=== PATIENT | male | born 1965 | race Two or more races ===

== ENCOUNTER 2016-05-31 16:07 | Inpatient (IN) | payer MEDICAID ==
[~2016-05-31] VITALS: Ht 162.6 cm; Wt 63.5 kg
[~2016-05-31 16:07] MED LIST: ACETAMINOPHEN325 M1 ORAL; AMLODIPINE BESY10 MG ORAL; CEPHALEXIN500 M1 ORAL; FOLIC ACID1 MG ORAL; GLYBURIDE5 MG ORAL; JANUVIA50 MG ORAL; TRAMADOL HCL50 MG ORAL; VANCO 1 GR1 GM/250 M IV; VANCOMYCIN1 GM/2502 IVPB; VITAMIN B-1100 MG ORAL
[2016-05-31 16:45] VITALS: BP 149/96
[2016-05-31 16:51] LABS: MEAN CORPUSCULAR HEMOGLOBIN 32.7 PG (27.0-31.0); MEAN CORPUSCULAR HGB CONC 33.3 G/DL (32.0-36.0); MEAN CORPUSCULAR VOLUME 98 FL (80-99); MEAN PLATELET VOLUME 8.1 FL (6.5-10.1); PLATELET COUNT 76 K/UL (150-450); RED CELL DISTRIBUTION WIDTH 12.8 % (11.6-14.8); WHITE BLOOD COUNT 5.2 K/UL (4.8-10.8)
[2016-05-31 17:03] LABS: ALANINE AMINOTRANSFERASE 24 U/L (3-41); ALBUMIN/GLOBULIN RATIO 0.9 (1.0-2.7); ALCOHOL 275 mg/dL; ANION GAP 15 (5-15); ASPARTATE AMINO TRANSFERASE 38 U/L (5-40); CALCIUM 9.6 mg/dL (8.6-10.2); CARBON DIOXIDE 30 mEQ/L (20-30); CHLORIDE 97 mEQ/L (98-107); CREATININE 0.9 mg/dL (0.7-1.2); GLOMERULAR FILTRATION RATE > 60 mL/min (>60); HEMOLYSIS 5; POTASSIUM 4.7 mEQ/L (3.4-4.9); SODIUM 142 mEQ/L (135-145); TOTAL PROTEIN 9.4 g/dL (6.6-8.7)
[2016-05-31 17:21] LABS: TROPONIN I < 0.30 ng/mL (<=0.30)
[2016-05-31] MEDS ORDERED: NS 1000ml 1,900 ML IVLG ONE (17:30)
[2016-05-31 18:21] LABS: BAND NEUTROPHILS % (MANUAL) 1 % (0-8); BASOPHILS % (MANUAL) 2 % (0-2); EOSINOPHILS % (MANUAL) 4 % (0-3); LYMPHOCYTES % (MANUAL) 52 % (20-45); NEUTROPHILS % (MANUAL) 35 % (45-75); PLATELET ESTIMATE DECREASED; PLATELET MORPHOLOGY NORMAL; TOTAL CELLS COUNTED 100
--- NOTE | 2016-05-31 18:21 | Emergency Room Report ---
History of Present Illness General Chief Complaint: Generalized Weakness Source: Patient Present Illness HPI This patient is brought in by EMS. He has a history of alcoholism. He was brought in because he complains of being shaky and not feeling well. Per report , his daughter told EMS that he has been in alcohol rehabilitation. However, she suspects that he has been drinking. He states that he is shaky and does not feel well. He admits he has been drinking. He has no other complaints. Allergies: Coded Allergies: No Known Allergies (Unverified , 11/18/15) Patient History Past Medical History: see triage record, DM, HTN, seizures Social History: Reports: alcohol use, Denies: drug use, smoking Reviewed Nursing Documentation: PMH: Agreed, PSxH: Agreed Nursing Documentation-PMH Hx Cardiac Problems: Yes Hx Hypertension: Yes Hx Diabetes: Yes Hx Cancer: No Hx Gastrointestinal Problems: No Hx Neurological Problems: Yes - etoh abuse Hx Seizures: Yes Hx Weakness: Yes Review of Systems All Other Systems: negative except mentioned in HPI Physical Exam Vital Signs Date Time Temp Pulse Resp B/P Pulse Ox O2 Delivery O2 Flow Rate FiO2 05/31/16 15:59 97.7 110 16 150/90 97 Room Air Sp02 EP Interpretation: reviewed, normal General Appearance: no apparent distress, alert, GCS 15, non-toxic Head: normocephalic, atraumatic Eyes: bilateral eye PERRL, bilateral eye normal inspection ENT: hearing grossly normal, normal pharynx, no angioedema, normal voice Neck: full range of motion, supple/symm/no masses Respiratory: chest non-tender, lungs clear, normal breath sounds, speaking full sentences Cardiovascular #1: regular rate, rhythm, no edema, tachycardia Gastrointestinal: normal bowel sounds, non tender, soft, non-distended, no guarding, no rebound Rectal: deferred Musculoskeletal: back normal, normal range of motion, non-tender Neurologic: alert, oriented x3, responsive, motor strength/tone normal, sensory intact, speech normal Psychiatric: mood/affect normal Skin: normal color, no rash, warm/dry, well hydrated Medical Decision Making Diagnostic Impression: Primary Impression: Alcohol withdrawal Additional Impression: Diabetes type 2, uncontrolled ER Course This pt has a long hx of alcohol abuse and dependence. He presents feeling poorly, and is "shaky." He has a KEARNEY of 272. He also had BS over 300. Likely this is secondary to ETOH abuse and medication non-complaince. He is admitted for further evaluation and treatment of his uncontrolled DM. See EMR EKG Diagnostic Results Rate: tachycardiac Rhythm: other ST Segments: no acute changes Other Impression S.tachycardia Rhythm Strip Diag. Results EP Interpretation: yes Rate: 110's Rhythm: no PVC's, no ectopy Other Impression S.tachycardia Chest X-Ray Diagnostic Results EP Interpretation: Yes Findings: no consolidation, no effusion, no pneumothorax, no acute cardiopulmonary disease Number of Views: 1 Last Vital Signs Date Time Temp Pulse Resp B/P Pulse Ox O2 Delivery O2 Flow Rate FiO2 05/31/16 16:45 97.3 110 13 149/96 100 Room Air Disposition: ADMITTED INPATIENT Condition: Serious Referrals: NOT CHOSEN CLAUDY/,REFERRING (PCP) EUSEBIO TAYLOR D.O. May 31, 2016 18:21
[2016-05-31 18:37] LABS: APPEARANCE,URINE CLEAR; KETONES,URINE NEGATIVE (NEGATIVE); LEUKOCYTE ESTERASE ,URINE NEGATIVE (NEGATIVE); NITRITE,URINE NEGATIVE (NEGATIVE); PH,URINE 6 (4.5-8.0); PROTEIN,URINE 2+ (NEGATIVE); UROBILINOGEN,URINE NORMAL MG/DL (0.0-1.0)
[2016-05-31 18:45] LABS: AMORPHOUS SEDIMENT,UR FEW /LPF; BACTERIA,URINE FEW /HPF; WBC,URINE 0-2 /HPF (0 - 0)
[2016-05-31 19:01] VITALS: BP 155/96
[2016-05-31] MEDS ORDERED: NovoLOG Insulin Flexpen SUBQ SCH (21:00)
[2016-05-31] MEDS ORDERED: LORazepam Inj 2mg/ml 1ml IM PRN (21:00)
[2016-05-31 21:50] LABS: HEMOLYSIS 12; IRON 132 ug/dL (59-158); TOTAL IRON BINDING CAPACITY 364 ug/dL (250-400)
[2016-05-31] MEDS: NovoLOG Insulin Flexpen SUBQ SCH (22:30)
[2016-06-01 00:08] VITALS: BP 122/56
[2016-06-01] MEDS: Acetaminophen 500mg (ES) tab ORAL PRN ×3 (01:33→21:10)
[2016-06-01 04:06] VITALS: BP 141/83
--- NOTE | 2016-06-01 04:37 | History and Physical Report ---
DATE OF ADMISSION: 05/31/2016 HISTORY OF PRESENT ILLNESS: The patient is a 51-year-old male with a history of alcohol dependence. He has been [facility] He presented to the emergency room with chief complaint of being shaky and not feeling well. The patient also has a history of diabetes mellitus, weakness, cytopenia, alcoholic cirrhosis, and seizure disorder. During the evaluation, he presented with tachycardia, anxiety, agitation, psychomotor agitation, and poor historian. Also according to the ER, the patient has been relapsed and drinking alcohol. He also presented with depressed mood and constricted affect. Denies suicidal or homicidal ideations. No delusions. No auditory or visual hallucinations. No manic symptoms. Past psychiatric history of depression. He is currently not taking any psychotropic medication. Denied any psychiatric history. PAST MEDICAL HISTORY: Significant for hypertension, seizure disorder, and diabetes mellitus. ALLERGIES: No known drug allergies. SUBSTANCE ABUSE HISTORY: Significant for alcohol abuse. No illicit drug use or smoking. MENTAL STATUS EXAMINATION: The patient is alert and oriented to time. The mood is dysphoric and anxious. Affect is constricted. Congruent mood. Thought process is concrete. Thought content, no suicidal or homicidal ideation. Insight and judgment impaired. ASSESSMENT: AXIS I: Alcohol dependence and alcohol withdrawal. AXIS II: Deferred. AXIS III: See above. AXIS IV: 20. PLAN: 1. The patient will be started on Valium 10 mg every 3 hours as needed for anxiety and agitation and alcohol withdrawal. 2. May benefit from fluoxetine 20 mg in the morning. This is the most appropriate medication with the patient alcoholism and depression. 3. We will continue follow and readjust the medications. Radha Brunson M.D. DR: BETO JOB#: [id number] CC:
--- NOTE | 2016-06-01 04:47 | Consultation ---
DATE OF CONSULTATION: 05/31/2016 HEMATOLOGY/ONCOLOGY CONSULTATION CONSULTING PHYSICIAN: Tyree Swift M.D. REQUESTING PHYSICIAN: Giuseppe Anderson M.D. REASON FOR CONSULTATION: Evaluation of thrombocytopenia. IDENTIFYING DATA: Dear Dr. Justin Chin, The patient is a pleasant 51-year-old male with past medical history significant for alcoholism, history of cirrhosis, history of hepatosplenomegaly, at this time presents to [facility] for complaints of . No complaints of being tired, fatigue, generalized weakness per report from daughter, the patient has been recently in alcohol rehabilitation. The patient per daughter says that she suspects he has been drinking. upon presentation to the ER WBC 5.2, hemoglobin 13.4, hematocrit 40, and platelet count 76,000. Platelet count within normal limits at his baseline. He did not have history of hepatitis or HIV, however, does have history of hepatosplenomegaly. BUN of 9 and creatinine 0.9. Hematology service was consulted. PAST MEDICAL HISTORY: Hypertension, CHF, . PAST SURGICAL HISTORY: None noted. MEDICATIONS: folic acid, glyburide, Januvia, and thiamine. ALLERGIES: No known drug allergies. FAMILY HISTORY: Noncontributory. REVIEW OF SYSTEMS: Constitutional: No fever. No chills. However, does have some night sweats and shakiness. HEENT: No headache, hearing, or vision changes. Breasts: No lumps, pain, or discharge. Pulmonary: No cough, sputum, or shortness of breath. Cardiovascular: No chest pain, tightness, or palpitations. Gastrointestinal: No nausea, vomiting, or diarrhea. Genitourinary: No dysuria, frequency, or urgency. Musculoskeletal: No joint swelling, muscle pain, or trauma. Neurologic: No dizziness, fainting, or seizures. PHYSICAL EXAMINATION: GENERAL: He is in no distress. VITAL SIGNS: temperature 97.2 degrees Fahrenheit, pulse 111, respiratory rate 13, blood pressure 155/96, and pulse oximetry 100% on room air. PULMONARY: Decreased breath sounds. CARDIOVASCULAR: Regular rate. No S3 or S4. ABDOMEN: Soft, nontender, and nondistended. EXTREMITIES: A 1+ edema. LABORATORY DATA: Platelet count 76,000, WBC 5.2, hemoglobin 13.4, and hematocrit 40. BUN 9 and creatinine 0.9. Alkaline phosphatase 184. ASSESSMENT: 1. Thrombocytopenia likely secondary to underlying hepatosplenomegaly and cirrhosis. 2. Human immunodeficiency virus in the past. No evidence of other etiology besides potential infection. 3. Anemia secondary to chronic disease. In the past, it was in between 9 and 10, currently 13. 4. Decreased hemoglobin and hematocrit, rule out gastrointestinal bleed. 5. Alcoholism history. 6. Alcohol-induced liver cirrhosis. 7. Hypertension. 8. Seizure disorder. RECOMMENDATIONS: 1. Obtain iron panel and ferritin. 2. Peripheral smear ordered as well as HIV, which cannot see the result of the new system. 3. Hepatitis panel reviewed from before. No need to reorder. 4. Medications reviewed. 5. Alcohol cessation entertained. 6. Recommended alcohol . 7. Discuss this with the patient. 8. Continue outpatient alcohol detoxification treatment. 9. Appreciate family input. 10. Follow up on recommendations from other services. 11. Discuss with staff. 12. Transfuse if platelet count less than 20,000. Thank you, Dr. Justin Chin for this consult. Please do not hesitate to contact me with any further questions. Tyree Swift M.D. DR: Farhan JOB#: [id number] CC:
[2016-06-01] MEDS: NovoLOG Insulin Flexpen SUBQ SCH ×4 (06:21→21:08)
[2016-06-01 08:00] VITALS: BP 132/87
--- NOTE | 2016-06-01 08:47 | Cardiac Electrophysiology PN ---
Subjective Subjective [id number] Objective Last 24 Hour Vital Signs Date Time Temp Pulse Resp B/P Pulse Ox O2 Delivery O2 Flow Rate FiO2 06/01/16 08:00 98.2 101 18 132/87 97 Room Air 06/01/16 04:24 99 06/01/16 04:06 98.7 97 20 141/83 98 Room Air 06/01/16 00:24 103 06/01/16 00:08 97.9 109 21 122/56 95 Room Air 05/31/16 19:40 97.3 111 13 155/96 100 Room Air 05/31/16 19:01 111 13 155/96 100 Room Air 05/31/16 16:45 97.3 110 13 149/96 100 Room Air 05/31/16 15:59 97.7 110 16 150/90 97 Room Air Intake and Output 05/31/16 06/01/16 19:00 07:00 Intake Total 100 ml Output Total 500 ml Balance 100 ml -500 ml Intake Oral 100 ml Output Urine Total 500 ml Laboratory Tests Test 05/31/16 16:40 05/31/16 18:00 White Blood Count 5.2 K/UL (4.8-10.8) Red Blood Count 4.10 M/UL (4.70-6.10) L Hemoglobin 13.4 G/DL (14.2-18.0) L Hematocrit 40.3 % (42.0-52.0) L Mean Corpuscular Volume 98 FL (80-99) Mean Corpuscular Hemoglobin 32.7 PG (27.0-31.0) H Mean Corpuscular Hemoglobin Concent 33.3 G/DL (32.0-36.0) Red Cell Distribution Width 12.8 % (11.6-14.8) Platelet Count 76 K/UL (150-450) L Mean Platelet Volume 8.1 FL (6.5-10.1) Neutrophils (%) (Auto) % (45.0-75.0) Lymphocytes (%) (Auto) % (20.0-45.0) Monocytes (%) (Auto) % (1.0-10.0) Eosinophils (%) (Auto) % (0.0-3.0) Basophils (%) (Auto) % (0.0-2.0) Differential Total Cells Counted 100 Neutrophils % (Manual) 35 % (45-75) L Lymphocytes % (Manual) 52 % (20-45) H Monocytes % (Manual) 6 % (1-10) Eosinophils % (Manual) 4 % (0-3) H Basophils % (Manual) 2 % (0-2) Band Neutrophils 1 % (0-8) Platelet Estimate Decreased L Platelet Morphology Normal Red Blood Cell Morphology Normal Sodium Level 142 mEQ/L (135-145) Potassium Level 4.7 mEQ/L (3.4-4.9) Chloride Level 97 mEQ/L (98-107) L Carbon Dioxide Level 30 mEQ/L (20-30) Anion Gap 15 (5-15) Blood Urea Nitrogen 9 mg/dL (7-23) Creatinine 0.9 mg/dL (0.7-1.2) Estimat Glomerular Filtration Rate > 60 mL/min (>60) Glucose Level 387 mg/dL (74-106) H Calcium Level 9.6 mg/dL (8.6-10.2) Iron Level 132 ug/dL (59-158) Total Iron Binding Capacity 364 ug/dL (250-400) Percent Iron Saturation 36 % (15-50) Unsaturated Iron Binding 232 ug/dL (112-346) Ferritin Pending Total Bilirubin 0.5 mg/dL (0.0-1.2) Aspartate Amino Transf (AST/SGOT) 38 U/L (5-40) Alanine Aminotransferase (ALT/SGPT) 24 U/L (3-41) Alkaline Phosphatase 184 U/L (40-129) H Troponin I < 0.30 ng/mL (<=0.30) Total Protein 9.4 g/dL (6.6-8.7) H Albumin 4.5 g/dL (3.5-5.2) Globulin 4.9 g/dL Albumin/Globulin Ratio 0.9 (1.0-2.7) L Serum Alcohol 275 mg/dL HIV (1&2) Antibody Rapid Negative (NEGATIVE) Urine Color Pale yellow Urine Appearance Clear Urine pH 6 (4.5-8.0) Urine Specific [place] 1.015 (1.005-1.035) Urine Protein 2+ (NEGATIVE) H Urine Glucose (UA) 4+ (NEGATIVE) H Urine Ketones Negative (NEGATIVE) Urine Occult Blood 1+ (NEGATIVE) H Urine Nitrite Negative (NEGATIVE) Urine Bilirubin Negative (NEGATIVE) Urine Urobilinogen Normal MG/DL (0.0-1.0) Urine Leukocyte Esterase Negative (NEGATIVE) Urine RBC 2-4 /HPF (0 - 0) H Urine WBC 0-2 /HPF (0 - 0) Urine Squamous Epithelial Cells None /LPF (NONE/OCC) Urine Amorphous Sediment Few /LPF (NONE) H Urine Bacteria Few /HPF (NONE) Urine Opiates Screen Negative (NEGATIVE) Urine Barbiturates Screen Negative (NEGATIVE) Phencyclidine (PCP) Screen Negative (NEGATIVE) Urine Amphetamines Screen Negative (NEGATIVE) Urine Benzodiazepines Screen Negative (NEGATIVE) Urine Cocaine Screen Negative (NEGATIVE) Urine Marijuana (THC) Screen Negative (NEGATIVE) Microbiology Date/Time Source Procedure Growth Status 05/31/16 16:40 Nasal Nares Influenza Types A,B Antigen (DHEERAJ) - Final Complete SIVA TOWNSEND Jun 01, 2016 08:47
[2016-06-01] MEDS: Thiamine 100mg tab ORAL SCH (08:55)
--- NOTE | 2016-06-01 09:40 | Consultation ---
Consult Note Consult Note asked to eval for proteinuria Chief Complaint: Generalized Weakness This patient is brought in by EMS. He has a history of alcoholism. He was brought in because he complains of being shaky and not feeling well. Per report , his daughter told EMS that he has been in alcohol rehabilitation. However, she suspects that he has been drinking. He states that he is shaky and does not feel well. He admits he has been drinking. He has no other complaints. Patient History Past Medical History: see triage record, DM, HTN, seizures Social History: Reports: alcohol use, Denies: drug use, smoking Hx Cardiac Problems: Yes Hx Hypertension: Yes Hx Diabetes: Yes Hx Cancer: No Hx Gastrointestinal Problems: No Hx Neurological Problems: Yes - etoh abuse Hx Seizures: Yes Hx Weakness: Yes Assessment/Plan status: Proteinuria , likely related to DM or h/o HIV. At this time BUN and Cr are WNL. other conditions: 1. Thrombocytopenia likely secondary to underlying hepatosplenomegaly and cirrhosis. 2. h/o Human immunodeficiency virus in the past. currently HIV negative ! 3. Anemia secondary to chronic disease. 4. Alcoholism history. 5. Alcohol-induced liver cirrhosis. 6. Hypertension. 7. Seizure disorder. 8. DM, Hyperglycemia on presentation Plan: Optimize blood sugar- monitor renal parameters and lytes- watch for alcohol withdraw per orders- EULALIA ENAMORADO Jun 01, 2016 09:40
--- NOTE | 2016-06-01 09:48 | Consultation ---
DATE OF CONSULTATION: 06/01/2016 ENDOCRINOLOGY CONSULTATION: REFERRING PHYSICIAN: Giuseppe Anderson M.D. REASON FOR CONSULTATION: Diabetes management. HISTORY OF PRESENT ILLNESS: This is a 51-year-old male with past medical history of alcoholism, cirrhosis, and hepatomegaly, presented to [facility] with generalized weakness. The patient's glucose was elevated. Endocrinology was consulted in order to assist in the management of hyperglycemia. The patient has had tachycardia, anxiety, and agitation. He is a poor historian. PAST MEDICAL HISTORY: Hypertension, seizure disorder, diabetes, alcoholism, and liver disease. MEDICATIONS: Medication as an outpatient, glyburide 2.5 mg b.i.d. and Januvia 50 mg daily. ALLERGIES TO MEDICATION: None. SOCIAL HISTORY: Alcohol abuse. No smoking. No drug use. FAMILY HISTORY: Noncontributory. REVIEW OF SYSTEMS: Difficult to obtain. PHYSICAL EXAMINATION: GENERAL: The patient is drowsy, not in distress. VITAL SIGNS: Blood pressure is 141/83, pulse of 87, temperature 98.2 degrees, and respiratory rate of 18. HEENT: Pupils are equal and reactive to light and accommodation. Sclerae are anicteric. NECK: No JVD. HEART: Regular rate and rhythm. ABDOMEN: Positive bowel sounds. EXTREMITIES: No clubbing, cyanosis, or edema. LABORATORY VALUES: Sodium 142, potassium 4.7, chloride 97, bicarbonate 30, BUN 9, creatinine 0.9, and glucose of 397. WBC 5.2, hemoglobin 13, hematocrit 40, and platelets of 176,000. DIAGNOSES: 1. Diabetes out of control. 2. Alcoholism. 3. Liver disease. PLAN: 1. Liver function tests are stable. 2. I will start the patient on metformin. 3. Januvia 100 mg daily. 4. Sliding scale insulin. 5. Further adjustment according to blood glucose values. Thank you, Dr. Anderson, for request of this consultation. Arturo Graff M.D. DR: Akin JOB#: [id number] CC: PAUL
--- NOTE | 2016-06-01 11:38 | Diagnostic Imaging Report ---
Indication: Chest Pain Comparison: 11/27/15 A single view chest radiograph was obtained. Findings: Cardiomediastinal appearance is within normal limits for age. Pulmonary vascularity is appropriate. The diaphragmatic contour is smooth and costophrenic angles are sharp. No pleural effusions are identified. The bones are unremarkable. Impression: No acute findings
[2016-06-01 12:08] VITALS: BP 135/98
[2016-06-01] MEDS: metFORMIN 500mg tab ORAL SCH ×2 (12:45→16:23)
--- NOTE | 2016-06-01 13:18 | Consultation ---
DATE OF CONSULTATION: CARDIOLOGY CONSULTATION: CONSULTING PHYSICIAN: Darwin Arreguin M.D. REFERRING PHYSICIAN: Giuseppe Anderson M.D. REASON FOR CONSULTATION: Tachycardia and irregular heartbeat. HISTORY OF PRESENT ILLNESS: The patient is a 51-year-old, gentleman with a history of alcoholic cirrhosis, hepatosplenomegaly, hypertension as well as diabetes who was brought to [facility] in the form of being shaky and not feeling well. The patient apparently has been in alcohol rehabilitation, suspect that he has been drinking. The patient had EKG with the computer is actually junctional rhythm even though it is very irregular and it is possible it could be atrial fibrillation in the event that there is significant baseline artifact. The patient however denies any chest pain. At the time of my evaluation, the patient denies chest pain, palpitations, or shortness of breath. PAST MEDICAL HISTORY: 1. Hypertension. 2. Diabetes. 3. History of seizures. PAST SURGICAL HISTORY: Includes surgery on his left toe at [facility] recently. FAMILY HISTORY: Noncontributory. SOCIAL HISTORY: He has been eating and drinking alcohol heavily. REVIEW OF SYSTEMS: Review of systems was performed and was negative other than what was mentioned in the history of present illness. PHYSICAL EXAMINATION: VITAL SIGNS: Blood pressure is 132/87, pulse is 101, respirations 18, and temperature 98.2. HEAD AND NECK: Shows no JVD. LUNGS: Clear. CARDIOVASCULAR: Shows regular S1 and S2 with no gallop or murmur. ABDOMEN: Soft. EXTREMITIES: Nonpitting edema status post surgery in his left big toe. LABORATORY DATA: White count 5.2, hemoglobin 13.4, hematocrit of 40, and platelets 76,000. Sodium is 142, potassium 4.7, BUN of 9, hematocrit of 29, and glucose of 387. Troponin is negative. Glucose 387. ASSESSMENT AND PLAN: 1. Atrial fibrillation with rapid ventricular response, however EKG is very artifactual. Currently, the patient has remained in sinus rhythm. We will repeat the EKG. I will get an echocardiogram to make sure the patient does not have cardiomyopathy heavy alcohol use. In the meantime, I will hold off any cardiac active medication until we get further information. 2. Alcohol abuse on thiamine and folate. Watch for withdrawal. 3. Severe thrombocytopenia. The patient was evaluated by Dr. Granados likely due to underlying hepatosplenomegaly and cirrhosis. 4. Questionable human immunodeficiency virus in the past. 5. Seizure disorder. Thank very much, Dr. Anderson, for allowing me to participate in the care of this patient. Please do not hesitate to contact me if you have any questions regarding my evaluation. Darwin Arreguin M.D. DR: CAMDEN JOB#: [id number] CC:
--- NOTE | 2016-06-01 15:41 | General Progress Note ---
Assessment/Plan Assessment/Plan ASSESSMENT: 1. Thrombocytopenia likely secondary to underlying hepatosplenomegaly and cirrhosis. 2. Anemia secondary to chronic disease. In the past, it was in between 9-10, currently 13. 3. Decreased hemoglobin and hematocrit, rule out GI bleed. 4. Alcoholism history. 5. Alcohol-induced liver cirrhosis. 6. Hypertension. 7. Seizure disorder. 8. Atrial fibrillation RECOMMENDATIONS: 1. Obtain ferritin----> iron panel shows mixed picture, elevated tibc 2. Peripheral smear has been ordered 3. Hepatitis panel reviewed from before. 4. Medications reviewed. 5. Alcohol cessation has been recommended 6. Followup cards, endo, renal recs 7. Discuss this with the patient. 8. Continue outpatient alcohol detoxification treatment. 9. Appreciate family input. 10. Transfuse if platelet count less than 20,000. 11. Discuss with staff. Thank you, Tyree Swift MD Subjective Constitutional: Reports: no symptoms HEENT: Reports: no symptoms Cardiovascular: Reports: no symptoms Respiratory: Reports: no symptoms Gastrointestinal/Abdominal: Reports: poor appetite Genitourinary: Reports: no symptoms Neurologic/Psychiatric: Reports: no symptoms Endocrine: Reports: no symptoms Hematologic/Lymphatic: Reports: anemia Allergies: Coded Allergies: No Known Allergies (Unverified , 11/18/15) Subjective no events overnight, no bleeding Objective Last 24 Hour Vital Signs Date Time Temp Pulse Resp B/P Pulse Ox O2 Delivery O2 Flow Rate FiO2 06/01/16 12:08 97.9 101 18 135/98 98 Room Air 06/01/16 08:08 98 06/01/16 08:00 98.2 101 18 132/87 97 Room Air 06/01/16 04:24 99 06/01/16 04:06 98.7 97 20 141/83 98 Room Air 06/01/16 00:24 103 06/01/16 00:08 97.9 109 21 122/56 95 Room Air 05/31/16 19:40 97.3 111 13 155/96 100 Room Air 05/31/16 19:01 111 13 155/96 100 Room Air 05/31/16 16:45 97.3 110 13 149/96 100 Room Air 05/31/16 15:59 97.7 110 16 150/90 97 Room Air Intake and Output 05/31/16 06/01/16 19:00 07:00 Intake Total 100 ml Output Total 500 ml Balance 100 ml -500 ml Intake Oral 100 ml Output Urine Total 500 ml Laboratory Tests 05/31/16 16:40: White Blood Count 5.2, Red Blood Count 4.10L, Hemoglobin 13.4L, Hematocrit 40.3L , Mean Corpuscular Volume 98, Mean Corpuscular Hemoglobin 32.7H, Mean Corpuscular Hemoglobin Concent 33.3, Red Cell Distribution Width 12.8, Platelet Count 76L, Mean Platelet Volume 8.1, Neutrophils (%) (Auto) , Lymphocytes (%) ( Auto) , Monocytes (%) (Auto) , Eosinophils (%) (Auto) , Basophils (%) (Auto) , Differential Total Cells Counted 100, Neutrophils % (Manual) 35L, Lymphocytes % (Manual) 52H, Monocytes % (Manual) 6, Eosinophils % (Manual) 4H, Basophils % ( Manual) 2, Band Neutrophils 1, Platelet Estimate DecreasedL, Platelet Morphology Normal, Red Blood Cell Morphology Normal, Sodium Level 142, Potassium Level 4.7, Chloride Level 97L, Carbon Dioxide Level 30, Anion Gap 15, Blood Urea Nitrogen 9, Creatinine 0.9, Estimat Glomerular Filtration Rate > 60, Glucose Level 387H, Calcium Level 9.6, Iron Level 132, Total Iron Binding Capacity 364, Percent Iron Saturation 36, Unsaturated Iron Binding 232, Ferritin [Pending], Total Bilirubin 0.5, Aspartate Amino Transf (AST/SGOT) 38, Alanine Aminotransferase (ALT/SGPT) 24, Alkaline Phosphatase 184H, Troponin I < 0.30, Total Protein 9.4H, Albumin 4.5, Globulin 4.9, Albumin/Globulin Ratio 0.9L , Serum Alcohol 275, HIV (1&2) Antibody Rapid Negative 05/31/16 18:00: Urine Color Pale yellow, Urine Appearance Clear, Urine pH 6, Urine Specific [place] 1.015, Urine Protein 2+H, Urine Glucose (UA) 4+H, Urine Ketones Negative , Urine Occult Blood 1+H, Urine Nitrite Negative, Urine Bilirubin Negative, Urine Urobilinogen Normal, Urine Leukocyte Esterase Negative, Urine RBC 2-4H, Urine WBC 0-2, Urine Squamous Epithelial Cells None, Urine Amorphous Sediment FewH, Urine Bacteria Few, Urine Opiates Screen Negative, Urine Barbiturates Screen Negative, Phencyclidine (PCP) Screen Negative, Urine Amphetamines Screen Negative, Urine Benzodiazepines Screen Negative, Urine Cocaine Screen Negative, Urine Marijuana (THC) Screen Negative Height (Feet): 5 Height (Inches): 4.00 Weight (Pounds): 140 General Appearance: no apparent distress EENT: TMs normal Neck: supple Cardiovascular: regular rhythm Respiratory/Chest: lungs clear Abdomen: non tender Genitourinary/Rectal: normal rectal exam Extremities: non-tender Edema: no edema noted Leg (L), no edema noted Leg (R) Edema: mild edema Neurologic: alert Skin: warm/dry Tyree Swift Jun 01, 2016 15:41
[2016-06-01 16:00] VITALS: BP 126/90
[2016-06-01] MEDS ORDERED: Influenza Virus Vaccine 0.5ml IM ONE (16:00)
--- NOTE | 2016-06-01 17:30 | Consultation ---
Consult Note Consult Note NEUROLOGY CONSULTATION: Full note dictated #[id number] 51 y/o, RH, HM with PH of HTN, DM, foot infections, and seizures associated with alcohol use. Last seizure was numerous months ago. ON EXAM: Absent DTR Wide based stance & gait. 7-8 Hz tremor of hands. IMPRESSION: Patient came in with alcohol intoxication. Now with signs of mild withdrawal. Alcohol related seizures in the past. REC: Patient told about the ills of alcohol and alcohol relate seizures. Observe. Romulo Nunez M.D., M.S.P.H. ROMULO NUNEZ Jun 01, 2016 17:30
[2016-06-01 20:00] VITALS: BP 125/77
[2016-06-02 00:05] VITALS: BP 157/96
--- NOTE | 2016-06-02 02:48 | Consultation ---
DATE OF CONSULTATION: 06/01/2016 NEUROLOGY CONSULTATION REQUESTING PHYSICIAN: Giuseppe Anderson M.D. HISTORY: Mr. Christopher Camara is a 51-year-old, right-handed, gentleman, who does have a past history of hypertension, diabetes mellitus, foot infection for which he was on antibiotics for prolonged periods of time and prior seizures associated with alcohol use. His last seizure was numerous months ago. He was brought into the [facility] emergency room on 05/31/2016 for alcohol intoxication. When he was brought in, he was complaining of anxiety, was significantly agitated and tremulous, and was not mentating in the normal fashion. Since he has been here, he has improved significantly. This consultation was requested to evaluate the patient from a neurological point of view for his prior history of seizures. As per the patient, he has always had his seizures associated with too much alcohol or when he stops drinking alcohol. He apparently passes out and has been told that he shakes generally when he has seizure. He says that he has not had a seizure for quite some time now. He is not on any medicine for his seizures. PAST MEDICAL HISTORY: Significant for hypertension, diabetes mellitus, foot infection, alcohol-related seizures, and alcoholism. FAMILY HISTORY: Significant for high blood pressure and diabetes mellitus in numerous family members. PERSONAL HISTORY: Home: He lives with his brother. Work: He has been unemployed for numerous years. Prior to that, he used to do labour jobs. Habits: He denies the use of tobacco or illicit drugs but he does drink alcohol. He frequently drinks a six pack of beer. PRESENT MEDICATIONS: Include Januvia, metformin, folic acid, thiamine, Aspart insulin, Valium 10 mg q. 3 h PRN., Ativan 1 mg IM PRN Tylenol PRN PHYSICAL EXAMINATION: GENERAL: He is a well-developed, well-nourished, pleasant but anxious gentleman, lying in bed, in no acute distress. VITAL SIGNS: Pulse 103 per minute, blood pressure 126/90 mmHg, respirations 20 per minute, and temperature 97.3 degrees Fahrenheit. HEAD: Normocephalic and atraumatic. EENT: Examination benign. NECK: No neck rigidity was observed. NEUROLOGICAL EXAMINATION: MENTAL STATUS EXAMINATION: He was alert and awake. He was oriented to person, place, and time. He was able to recall 3/3 words immediately after 1 minute and after 3 minutes on the second trial. He was able to remember presidents Obama through [place] with minimal hints. His mathematical skills were good. His visuospatial function was preserved. SPEECH: He had no dysarthria. LANGUAGE: He had no aphasia. Taking into account that [place] is his second language. CRANIAL NERVE EXAMINATION: II: The visual everett were intact to confrontation testing. III, IV & : The external ocular movements were full and the pupils are 3 mm in diameter, equal, round, regular, and reactive to light. V: He had normal facial sensations, and the temporales, masseters, and pterygoids functioned normally. VII: He had normal facial expressions and no facial asymmetry. VIII: He was able to hear well bilaterally and had no nystagmus. IX: The palate moved symmetrically on phonation. X: He had no hoarseness of voice. XI: The sternocleidomastoids and trapezii functioned normally. XII: The tongue was in the midline without any fasciculations or atrophy. MOTOR SYSTEM: The tone was normal in all four extremities. Examination of muscle mass revealed generalized muscle wasting. Examination of power revealed grade 5/5 power in all muscle groups tested. SENSORY EXAMINATION: He had intact sensations to pinprick light touch and graphesthesia. He however complained of a subjective alteration to pinprick and light touch in a calf length stocking distribution. Position sense was normal in the fingers bilaterally but was significantly diminished in the toes bilaterally. REFLEXES: 0 at biceps, triceps, brachioradialis, knees, and ankles. The plantar responses were flexor bilaterally. STANCE: He had wide-based stance. GAIT: He had wide-based gait. DIAGNOSTIC IMPRESSION: 1. Mr. Christopher Camara is a 51-year-old, right-handed, gentleman, who has a long history of hypertension, diabetes mellitus, alcoholism, and a few seizures over the years associated with either alcohol intoxication or alcohol withdrawal. He was hospitalized yesterday for alcohol intoxication associated with generalized weakness, anxiety, and feeling unwell. He has improved since then. 2. On neurological examination, at this time, he does have mild problems with recent and remote memory, globally diminished reflexes, decreased sensations to pinprick and light touch in a calf length stocking distribution, decreased position sense in the toes bilaterally, globally absent reflexes, a wide-based stance, and a wide-based gait. 3. Laboratory data obtained thus far have revealed at that he is anemic with a hemoglobin of 13.4. His platelet count is down to 76,000. His glucose on admission was 387 and his blood alcohol level was 275 mg/dL 4. The patient's history and neurological examination are most compatible with a history of alcohol use and alcohol related seizures. The patient has not had seizures that have been non-alcohol related. In addition, he has not been on any medicine for seizure prophylaxis and as long as he does not drink or withdraw from alcohol he does not have seizures. RECOMMENDATIONS: 1. Agree with management thus far. 2. Treatment of the patient's diabetes mellitus, hypertension, and foot infection. 3. The patient was told about ills of alcohol abuse and the dangers of alcohol related seizures. 4. Treatment of alcohol withdrawal as per Dr. Brunson. 5. Depending on how the patient fares over the next day or so, further recommendations to be given. Thank you for entrusting me with the care of Mr. Camara. I shall follow him with you. Corey Nunez M.D., M.S.P.H. DR: Valentina JOB#: [id number] MTDD
[2016-06-02] MEDS: Acetaminophen 500mg (ES) tab ORAL PRN (03:43)
[2016-06-02 04:03] VITALS: BP 152/93
[2016-06-02] MEDS: metFORMIN 500mg tab ORAL SCH ×3 (06:06→17:28)
[2016-06-02] MEDS: NovoLOG Insulin Flexpen SUBQ SCH ×4 (06:07→21:47)
[2016-06-02 08:00] VITALS: BP 139/89
[2016-06-02 08:13] LABS: MEAN CORPUSCULAR HEMOGLOBIN 32.9 PG (27.0-31.0); MEAN CORPUSCULAR HGB CONC 34.9 G/DL (32.0-36.0); MEAN CORPUSCULAR VOLUME 94 FL (80-99); MEAN PLATELET VOLUME 8.8 FL (6.5-10.1); PLATELET COUNT 67 K/UL (150-450); RED BLOOD COUNT 3.76 M/UL (4.70-6.10)
--- NOTE | 2016-06-02 08:16 | General Progress Note ---
Assessment/Plan Problem List: (1) ETOH abuse ICD Codes: F10.10 - Alcohol abuse, uncomplicated SNOMED: 66454314, 91570769 (2) Diabetes type 2, uncontrolled ICD Codes: E11.65 - Type 2 diabetes mellitus with hyperglycemia SNOMED: 812679298 Assessment/Plan diabetes is not controlled on current regimen of Metformin and Januvia I will add Amaryl 2 mg daily continue sliding scale insulin with Novolog Subjective ROS Limited/Unobtainable: Yes Allergies: Coded Allergies: No Known Allergies (Unverified , 11/18/15) Subjective events noted Objective Last 24 Hour Vital Signs Date Time Temp Pulse Resp B/P Pulse Ox O2 Delivery O2 Flow Rate FiO2 06/02/16 04:03 97.0 94 20 152/93 98 Room Air 06/02/16 04:00 94 06/02/16 00:05 97.2 95 20 157/96 98 Room Air 06/02/16 00:00 92 06/01/16 20:00 97.6 102 18 125/77 97 Room Air 06/01/16 19:04 98 06/01/16 16:00 97.3 103 20 126/90 93 Room Air 06/01/16 15:03 103 06/01/16 12:08 97.9 101 18 135/98 98 Room Air Intake and Output 06/01/16 06/02/16 19:00 07:00 Output Total 1002 ml Balance -1002 ml Output Urine Total 1002 ml # Voids 2 2 # Bowel Movements 1 1 Laboratory Tests 06/02/16 07:10: Sodium Level [Pending], Potassium Level [Pending], Chloride Level [Pending], Carbon Dioxide Level [Pending], Blood Urea Nitrogen [Pending], Creatinine [ Pending], Estimat Glomerular Filtration Rate [Pending], Glucose Level [Pending] , Hemoglobin A1c [Pending], Uric Acid [Pending], Calcium Level [Pending], Phosphorus Level [Pending], Magnesium Level [Pending], Total Bilirubin [Pending] , Gamma Glutamyl Transpeptidase [Pending], Aspartate Amino Transf (AST/SGOT) [ Pending], Alanine Aminotransferase (ALT/SGPT) [Pending], Alkaline Phosphatase [ Pending], Troponin I [Pending], C-Reactive Protein, Quantitative [Pending], Pro- B-Type Natriuretic Peptide [Pending], Total Protein [Pending], Albumin [Pending] , Globulin [Pending], Triglycerides Level [Pending], Cholesterol Level [Pending] , LDL Cholesterol [Pending], HDL Cholesterol [Pending], Cholesterol/HDL Ratio [ Pending], Vitamin B12 Level [Pending], Folate [Pending], Thyroid Stimulating Hormone (TSH) [Pending], Free Thyroxine [Pending] Height (Feet): 5 Height (Inches): 4.00 Weight (Pounds): 140 General Appearance: no apparent distress Neck: normal alignment Cardiovascular: normal rate Respiratory/Chest: chest wall non-tender, normal breath sounds Abdomen: normal bowel sounds Objective Current Medications Medications (Trade) Dose Ordered Sig/Ariella Route PRN Reason Start Time Stop Time Status Last Admin Dose Admin Acetaminophen (Tylenol) 500 mg Q4H PRN ORAL Fever/Headache/Mild Pain 05/31/16 21:00 06/30/16 20:59 06/02/16 03:43 Dextrose (Dextrose 50%) STAT PRN IV Hypoglycemia 05/31/16 21:00 06/30/16 20:59 Diazepam (Valium) 10 mg EVERY 3 HOURS PRN ORAL alcohol withdrawal 05/31/16 21:45 06/07/16 21:44 Folic Acid (Folate) 1 mg DAILY ORAL 06/01/16 09:00 07/01/16 08:59 06/01/16 08:55 Insulin Aspart (NovoLOG) BEFORE MEALS AND HS SUBQ 05/31/16 22:30 06/30/16 22:29 06/02/16 06:07 Lorazepam (Ativan 2mg/ml 1ml) 1 mg Q4HR PRN IM For Seizures 05/31/16 21:00 06/07/16 20:59 Metformin HCl (Glucophage) 500 mg TIAC ORAL 06/01/16 11:30 07/01/16 11:29 06/02/16 06:06 Sitagliptin Phosphate (Januvia) 100 mg ACBREAKFAST ORAL 06/01/16 11:30 07/01/16 11:29 06/02/16 06:06 Thiamine HCl (Vitamin B1) 100 mg DAILY ORAL 06/01/16 09:00 07/01/16 08:59 06/01/16 08:55 Item Value Date Time Bedside Blood Glucose 217 mg/dl H 06/02/16 0620 Bedside Blood Glucose 302 mg/dl H 06/01/16 2108 Bedside Blood Glucose 269 mg/dl H 06/01/16 1630 Bedside Blood Glucose 273 mg/dl H 06/01/16 1200 Bedside Blood Glucose 170 mg/dl H 06/01/16 0621 MESHA BRAMBILA Jun 02, 2016 08:16
[2016-06-02 08:19] LABS: TROPONIN I < 0.30 ng/mL (<=0.30)
[2016-06-02 08:27] LABS: CRP QUANT < 0.3 mg/dL (< 0.5); MAGNESIUM 1.4 mg/dL (1.7-2.5); PHOSPHORUS 4.4 mg/dL (2.5-4.8); URIC ACID 4.5 mg/dL (3.0-7.5)
[2016-06-02 08:30] LABS: ALANINE AMINOTRANSFERASE 20 U/L (3-41); ALBUMIN/GLOBULIN RATIO 0.9 (1.0-2.7); ANION GAP 19 (5-15); ASPARTATE AMINO TRANSFERASE 36 U/L (5-40); CALCIUM 9.6 mg/dL (8.6-10.2); CARBON DIOXIDE 23 mEQ/L (20-30); CHLORIDE 93 mEQ/L (98-107); CHOLESTEROL 136 mg/dL (< 200); CREATININE 0.9 mg/dL (0.7-1.2); GLOMERULAR FILTRATION RATE > 60 mL/min (>60); HEMOLYSIS 5; LDL CHOLESTEROL (CALC.) 81 mg/dL (60-99); POTASSIUM 4.2 mEQ/L (3.4-4.9); SODIUM 135 mEQ/L (135-145); TOTAL PROTEIN 7.6 g/dL (6.6-8.7)
[2016-06-02 08:46] LABS: HEMOGLOBIN A1C 11.6 % (< 6.0)
[2016-06-02 08:50] LABS: BILIRUBIN,DIRECT 0.3 mg/dL (0.1-0.3)
[2016-06-02 09:36] LABS: BAND NEUTROPHILS % (MANUAL) 0 % (0-8); BASOPHILS % (MANUAL) 0 % (0-2); EOSINOPHILS % (MANUAL) 4 % (0-3); LYMPHOCYTES % (MANUAL) 37 % (20-45); NEUTROPHILS % (MANUAL) 52 % (45-75); PLATELET ESTIMATE DECREASED; PLATELET MORPHOLOGY NORMAL; TOTAL CELLS COUNTED 100
[2016-06-02] MEDS: Thiamine 100mg tab ORAL SCH (09:46)
--- NOTE | 2016-06-02 10:01 | Wound Care Consultation ---
Wound Assessment Wound Assessment : Wound Number: #1 Wound Present on Admission: Yes New Wound: No Status Change of Wound: No Wound Location Body Site Modif: right Wound Location Body Site: toe - 1st Wound Type: scab Sada Test: Does not Sada Wound Thickness: Full Thickness Wound Length: 5.5 Wound Width: 3.0 Wound Depth: utd Percent of Wound Bed Yellow/Wh: 100 - yellow dry scab Wound Drainage Amount: None Wound Drainage Odor: None/Absent Tissue Surrounding Wound: thick dry scaly skin. Wound General Appearance: Open to air Wound Comment #1 Right 1st toe Scab. Recommendation. -Local wound care as ordered. -Turn and reposition. -Offload affected site. -Optimize nutrition -Heel protectors if needed. -Assess and notify MD if any changes as noted. Per patient wound site from right 1st toe states" came from a carpet stapler, and now look much better and drying." site remains dry and no foul odor, no drainage present. denies pain to site at this time. TANGELA TRUJILLO Jun 02, 2016 10:01
[2016-06-02] MEDS: Glimepiride 1mg tab ORAL SCH (10:31)
--- NOTE | 2016-06-02 10:56 | General Progress Note ---
Assessment/Plan Assessment/Plan ASSESSMENT: 1. Thrombocytopenia likely secondary to underlying hepatosplenomegaly and cirrhosis (confirmed on US) 2. Anemia secondary to chronic disease. In the past, it was in between 9-10 3. Leukopenia 2/2 splenomegaly 4. Alcoholism history. 5. Alcohol-induced liver cirrhosis. 6. Hypertension. 7. Seizure disorder. 8. Atrial fibrillation RECOMMENDATIONS: 1. Ferritin elevated, does not need iron 2. Peripheral smear has been ordered 3. Hepatitis panel reviewed from before. 4. Medications reviewed. 5. Alcohol cessation has been recommended 6. Followup cards, endo, renal recs 7. Discussed this with the patient. 8. Conside again outpatient alcohol detoxification treatment. 9. Transfuse if platelet count less than 20,000. 10. Discuss with staff. Thank you, Tyree Swift MD Subjective Constitutional: Reports: no symptoms HEENT: Reports: no symptoms Cardiovascular: Reports: no symptoms Respiratory: Reports: no symptoms Gastrointestinal/Abdominal: Reports: poor appetite Genitourinary: Reports: no symptoms Neurologic/Psychiatric: Reports: no symptoms Endocrine: Reports: no symptoms Hematologic/Lymphatic: Reports: anemia Allergies: Coded Allergies: No Known Allergies (Unverified , 11/18/15) Subjective no events overnight, no bleeding noted, is somewhat confused this morning Objective Last 24 Hour Vital Signs Date Time Temp Pulse Resp B/P Pulse Ox O2 Delivery O2 Flow Rate FiO2 06/02/16 08:00 97.3 95 18 139/89 95 Room Air 06/02/16 07:43 94 06/02/16 04:03 97.0 94 20 152/93 98 Room Air 06/02/16 04:00 94 06/02/16 00:05 97.2 95 20 157/96 98 Room Air 06/02/16 00:00 92 06/01/16 20:00 97.6 102 18 125/77 97 Room Air 06/01/16 19:04 98 06/01/16 16:00 97.3 103 20 126/90 93 Room Air 06/01/16 15:03 103 06/01/16 12:08 97.9 101 18 135/98 98 Room Air Intake and Output 06/01/16 06/02/16 19:00 07:00 Output Total 1002 ml Balance -1002 ml Output Urine Total 1002 ml # Voids 2 2 # Bowel Movements 1 1 Laboratory Tests 06/02/16 07:10: Sodium Level 135, Potassium Level 4.2, Chloride Level 93L, Carbon Dioxide Level 23, Anion Gap 19H, Blood Urea Nitrogen 9, Creatinine 0.9, Estimat Glomerular Filtration Rate > 60, Glucose Level 259H, Hemoglobin A1c 11.6H, Uric Acid 4.5, Calcium Level 9.6, Phosphorus Level 4.4, Magnesium Level 1.4L, Ferritin 359H, Total Bilirubin 1.3H, Direct Bilirubin 0.3, Gamma Glutamyl Transpeptidase 53, Aspartate Amino Transf (AST/SGOT) 36, Alanine Aminotransferase (ALT/SGPT) 20, Alkaline Phosphatase 120, Troponin I < 0.30, C-Reactive Protein, Quantitative < 0.3, Pro-B-Type Natriuretic Peptide 352H, Total Protein 7.6, Albumin 3.6, Globulin 4.0, Albumin/Globulin Ratio 0.9L, Triglycerides Level 51, Cholesterol Level 136, LDL Cholesterol 81, HDL Cholesterol 45, Cholesterol/HDL Ratio 3.0L, Vitamin B12 Level 673, Folate [Pending], Thyroid Stimulating Hormone (TSH) 2.000 , Free Thyroxine 1.75 06/02/16 07:50: White Blood Count 3.0L, Red Blood Count 3.76L, Hemoglobin 12.4L, Hematocrit 35.5L, Mean Corpuscular Volume 94, Mean Corpuscular Hemoglobin 32.9H, Mean Corpuscular Hemoglobin Concent 34.9, Red Cell Distribution Width 12.0, Platelet Count 67L, Mean Platelet Volume 8.8, Neutrophils (%) (Auto) , Lymphocytes (%) ( Auto) , Monocytes (%) (Auto) , Eosinophils (%) (Auto) , Basophils (%) (Auto) , Differential Total Cells Counted 100, Neutrophils % (Manual) 52, Lymphocytes % ( Manual) 37, Monocytes % (Manual) 7, Eosinophils % (Manual) 4H, Basophils % ( Manual) 0, Band Neutrophils 0, Platelet Estimate DecreasedL, Platelet Morphology Normal, Red Blood Cell Morphology Normal Height (Feet): 5 Height (Inches): 4.00 Weight (Pounds): 140 General Appearance: no apparent distress EENT: normal ENT inspection Neck: supple Cardiovascular: regular rhythm Respiratory/Chest: no accessory muscle use Abdomen: no organomegaly Extremities: non-tender Edema: no edema noted Leg (L), no edema noted Leg (R) Edema: mild edema Neurologic: alert Skin: warm/dry Tyree Swift Jun 02, 2016 10:56
--- NOTE | 2016-06-02 11:30 | General Progress Note ---
Assessment/Plan Problem List: (1) Anemia ICD Codes: D64.9 - Anemia, unspecified SNOMED: 754026669 (2) ETOH abuse ICD Codes: F10.10 - Alcohol abuse, uncomplicated SNOMED: 65934243, 22436837 (3) Diabetes type 2, uncontrolled ICD Codes: E11.65 - Type 2 diabetes mellitus with hyperglycemia SNOMED: 689630130 Status: progressing Assessment/Plan afebrile vitals stable etoh abuse dm uncontrolled Subjective ROS Limited/Unobtainable: Yes Constitutional: Reports: no symptoms Allergies: Coded Allergies: No Known Allergies (Unverified , 11/18/15) Objective Last 24 Hour Vital Signs Date Time Temp Pulse Resp B/P Pulse Ox O2 Delivery O2 Flow Rate FiO2 06/02/16 08:00 97.3 95 18 139/89 95 Room Air 06/02/16 07:43 94 06/02/16 04:03 97.0 94 20 152/93 98 Room Air 06/02/16 04:00 94 06/02/16 00:05 97.2 95 20 157/96 98 Room Air 06/02/16 00:00 92 06/01/16 20:00 97.6 102 18 125/77 97 Room Air 06/01/16 19:04 98 06/01/16 16:00 97.3 103 20 126/90 93 Room Air 06/01/16 15:03 103 06/01/16 12:08 97.9 101 18 135/98 98 Room Air Intake and Output 06/01/16 06/02/16 19:00 07:00 Output Total 1002 ml Balance -1002 ml Output Urine Total 1002 ml # Voids 2 2 # Bowel Movements 1 1 Laboratory Tests 06/02/16 07:10: Sodium Level 135, Potassium Level 4.2, Chloride Level 93L, Carbon Dioxide Level 23, Anion Gap 19H, Blood Urea Nitrogen 9, Creatinine 0.9, Estimat Glomerular Filtration Rate > 60, Glucose Level 259H, Hemoglobin A1c 11.6H, Uric Acid 4.5, Calcium Level 9.6, Phosphorus Level 4.4, Magnesium Level 1.4L, Ferritin 359H, Total Bilirubin 1.3H, Direct Bilirubin 0.3, Gamma Glutamyl Transpeptidase 53, Aspartate Amino Transf (AST/SGOT) 36, Alanine Aminotransferase (ALT/SGPT) 20, Alkaline Phosphatase 120, Troponin I < 0.30, C-Reactive Protein, Quantitative < 0.3, Pro-B-Type Natriuretic Peptide 352H, Total Protein 7.6, Albumin 3.6, Globulin 4.0, Albumin/Globulin Ratio 0.9L, Triglycerides Level 51, Cholesterol Level 136, LDL Cholesterol 81, HDL Cholesterol 45, Cholesterol/HDL Ratio 3.0L, Vitamin B12 Level 673, Folate [Pending], Thyroid Stimulating Hormone (TSH) 2.000 , Free Thyroxine 1.75 06/02/16 07:50: White Blood Count 3.0L, Red Blood Count 3.76L, Hemoglobin 12.4L, Hematocrit 35.5L, Mean Corpuscular Volume 94, Mean Corpuscular Hemoglobin 32.9H, Mean Corpuscular Hemoglobin Concent 34.9, Red Cell Distribution Width 12.0, Platelet Count 67L, Mean Platelet Volume 8.8, Neutrophils (%) (Auto) , Lymphocytes (%) ( Auto) , Monocytes (%) (Auto) , Eosinophils (%) (Auto) , Basophils (%) (Auto) , Differential Total Cells Counted 100, Neutrophils % (Manual) 52, Lymphocytes % ( Manual) 37, Monocytes % (Manual) 7, Eosinophils % (Manual) 4H, Basophils % ( Manual) 0, Band Neutrophils 0, Platelet Estimate DecreasedL, Platelet Morphology Normal, Red Blood Cell Morphology Normal Height (Feet): 5 Height (Inches): 4.00 Weight (Pounds): 140 EENT: PERRL/EOMI Neck: supple Cardiovascular: normal rate Giuseppe Anderson MD Jun 02, 2016 11:30
--- NOTE | 2016-06-02 11:50 | General Progress Note ---
Assessment/Plan Status: stable Assessment/Plan Proteinuria , likely related to DM or h/o HIV. At this time BUN and Cr are WNL. HGB A1c 11.6- likely Diabetic Nephropathy other conditions: 1. Thrombocytopenia likely secondary to underlying hepatosplenomegaly and cirrhosis. 2. h/o Human immunodeficiency virus in the past. currently HIV negative ! 3. Anemia secondary to chronic disease. 4. Alcoholism history. 5. Alcohol-induced liver cirrhosis. 6. Hypertension. 7. Seizure disorder. 8. DM, Hyperglycemia on presentation Plan: Mag supplement IV Optimize blood sugar- monitor renal parameters and lytes- watch for alcohol withdraw per orders- ? DC planning?? Subjective ROS Limited/Unobtainable: No Constitutional: Reports: other - feels stronger Allergies: Coded Allergies: No Known Allergies (Unverified , 11/18/15) Objective Last 24 Hour Vital Signs Date Time Temp Pulse Resp B/P Pulse Ox O2 Delivery O2 Flow Rate FiO2 06/02/16 08:00 97.3 95 18 139/89 95 Room Air 06/02/16 07:43 94 06/02/16 04:03 97.0 94 20 152/93 98 Room Air 06/02/16 04:00 94 06/02/16 00:05 97.2 95 20 157/96 98 Room Air 06/02/16 00:00 92 06/01/16 20:00 97.6 102 18 125/77 97 Room Air 06/01/16 19:04 98 06/01/16 16:00 97.3 103 20 126/90 93 Room Air 06/01/16 15:03 103 06/01/16 12:08 97.9 101 18 135/98 98 Room Air Intake and Output 06/01/16 06/02/16 19:00 07:00 Output Total 1002 ml Balance -1002 ml Output Urine Total 1002 ml # Voids 2 2 # Bowel Movements 1 1 Laboratory Tests 06/02/16 07:10: Sodium Level 135, Potassium Level 4.2, Chloride Level 93L, Carbon Dioxide Level 23, Anion Gap 19H, Blood Urea Nitrogen 9, Creatinine 0.9, Estimat Glomerular Filtration Rate > 60, Glucose Level 259H, Hemoglobin A1c 11.6H, Uric Acid 4.5, Calcium Level 9.6, Phosphorus Level 4.4, Magnesium Level 1.4L, Ferritin 359H, Total Bilirubin 1.3H, Direct Bilirubin 0.3, Gamma Glutamyl Transpeptidase 53, Aspartate Amino Transf (AST/SGOT) 36, Alanine Aminotransferase (ALT/SGPT) 20, Alkaline Phosphatase 120, Troponin I < 0.30, C-Reactive Protein, Quantitative < 0.3, Pro-B-Type Natriuretic Peptide 352H, Total Protein 7.6, Albumin 3.6, Globulin 4.0, Albumin/Globulin Ratio 0.9L, Triglycerides Level 51, Cholesterol Level 136, LDL Cholesterol 81, HDL Cholesterol 45, Cholesterol/HDL Ratio 3.0L, Vitamin B12 Level 673, Folate [Pending], Thyroid Stimulating Hormone (TSH) 2.000 , Free Thyroxine 1.75 06/02/16 07:50: White Blood Count 3.0L, Red Blood Count 3.76L, Hemoglobin 12.4L, Hematocrit 35.5L, Mean Corpuscular Volume 94, Mean Corpuscular Hemoglobin 32.9H, Mean Corpuscular Hemoglobin Concent 34.9, Red Cell Distribution Width 12.0, Platelet Count 67L, Mean Platelet Volume 8.8, Neutrophils (%) (Auto) , Lymphocytes (%) ( Auto) , Monocytes (%) (Auto) , Eosinophils (%) (Auto) , Basophils (%) (Auto) , Differential Total Cells Counted 100, Neutrophils % (Manual) 52, Lymphocytes % ( Manual) 37, Monocytes % (Manual) 7, Eosinophils % (Manual) 4H, Basophils % ( Manual) 0, Band Neutrophils 0, Platelet Estimate DecreasedL, Platelet Morphology Normal, Red Blood Cell Morphology Normal Height (Feet): 5 Height (Inches): 4.00 Weight (Pounds): 140 General Appearance: no apparent distress Cardiovascular: regular rhythm Respiratory/Chest: lungs clear Abdomen: soft EULALIA ENAMORADO Jun 02, 2016 11:50
[2016-06-02 12:13] VITALS: BP 120/88
--- NOTE | 2016-06-02 12:30 | Neurology Progress Note ---
Interim History Interim History Interim History Mr. Camara feels better. He is less tremulous. The mind is clear. His strength is good. The feet are numb. He denies any new neurologic symptoms. Review of Systems Neuro Review of Systems Benign. Objective Physical Exam Last Vital Signs Date Time Temp Pulse Resp B/P Pulse Ox O2 Delivery O2 Flow Rate FiO2 06/02/16 12:13 97.2 105 17 120/88 98 Room Air Laboratory Tests Test 06/02/16 07:10 06/02/16 07:50 Sodium Level 135 mEQ/L (135-145) Potassium Level 4.2 mEQ/L (3.4-4.9) Chloride Level 93 mEQ/L (98-107) L Carbon Dioxide Level 23 mEQ/L (20-30) Anion Gap 19 (5-15) H Blood Urea Nitrogen 9 mg/dL (7-23) Creatinine 0.9 mg/dL (0.7-1.2) Estimat Glomerular Filtration Rate > 60 mL/min (>60) Glucose Level 259 mg/dL (74-106) H Hemoglobin A1c 11.6 % (< 6.0) H Uric Acid 4.5 mg/dL (3.0-7.5) Calcium Level 9.6 mg/dL (8.6-10.2) Phosphorus Level 4.4 mg/dL (2.5-4.8) Magnesium Level 1.4 mg/dL (1.7-2.5) L Ferritin 359 ng/mL (10-230) H Total Bilirubin 1.3 mg/dL (0.0-1.2) H Direct Bilirubin 0.3 mg/dL (0.1-0.3) Gamma Glutamyl Transpeptidase 53 U/L (8-61) Aspartate Amino Transf (AST/SGOT) 36 U/L (5-40) Alanine Aminotransferase (ALT/SGPT) 20 U/L (3-41) Alkaline Phosphatase 120 U/L (40-129) Troponin I < 0.30 ng/mL (<=0.30) C-Reactive Protein, Quantitative < 0.3 mg/dL (< 0.5) Pro-B-Type Natriuretic Peptide 352 pg/mL (0-125) H Total Protein 7.6 g/dL (6.6-8.7) Albumin 3.6 g/dL (3.5-5.2) Globulin 4.0 g/dL Albumin/Globulin Ratio 0.9 (1.0-2.7) L Triglycerides Level 51 mg/dL (< 150) Cholesterol Level 136 mg/dL (< 200) LDL Cholesterol 81 mg/dL (60-99) HDL Cholesterol 45 mg/dL (> 60) Cholesterol/HDL Ratio 3.0 (3.3-4.4) L Vitamin B12 Level 673 pg/mL (211-946) Folate Pending Thyroid Stimulating Hormone (TSH) 2.000 uIU/mL (0.300-4.500) Free Thyroxine 1.75 ng/dL (0.86-1.85) White Blood Count 3.0 K/UL (4.8-10.8) L Red Blood Count 3.76 M/UL (4.70-6.10) L Hemoglobin 12.4 G/DL (14.2-18.0) L Hematocrit 35.5 % (42.0-52.0) L Mean Corpuscular Volume 94 FL (80-99) Mean Corpuscular Hemoglobin 32.9 PG (27.0-31.0) H Mean Corpuscular Hemoglobin Concent 34.9 G/DL (32.0-36.0) Red Cell Distribution Width 12.0 % (11.6-14.8) Platelet Count 67 K/UL (150-450) L Mean Platelet Volume 8.8 FL (6.5-10.1) Neutrophils (%) (Auto) % (45.0-75.0) Lymphocytes (%) (Auto) % (20.0-45.0) Monocytes (%) (Auto) % (1.0-10.0) Eosinophils (%) (Auto) % (0.0-3.0) Basophils (%) (Auto) % (0.0-2.0) Differential Total Cells Counted 100 Neutrophils % (Manual) 52 % (45-75) Lymphocytes % (Manual) 37 % (20-45) Monocytes % (Manual) 7 % (1-10) Eosinophils % (Manual) 4 % (0-3) H Basophils % (Manual) 0 % (0-2) Band Neutrophils 0 % (0-8) Platelet Estimate Decreased L Platelet Morphology Normal Red Blood Cell Morphology Normal Neurologic Exam Objective PHYSICAL EXAMINATION: GENERAL: He is a well-developed, well-nourished, pleasant but anxious gentleman, lying in bed, in no acute distress. HEAD: Normocephalic and atraumatic. EENT: Examination benign. NECK: No neck rigidity was observed. NEUROLOGICAL EXAMINATION: MENTAL STATUS EXAMINATION: He was alert and awake. He was oriented to person, place, and time. He was able to recall 3/3 words immediately after 1 minute and after 3 minutes on the second trial. He was able to remember presidents Obama through [place] with minimal hints. His mathematical skills were good. His visuospatial function was preserved. SPEECH: He had no dysarthria. LANGUAGE: He had no aphasia. Taking into account that [place] is his second language. CRANIAL NERVE EXAMINATION: II: The visual everett were intact to confrontation testing. III, IV & : The external ocular movements were full and the pupils 3 mm in diameter, equal, round, regular, and reactive to light. V: He had normal facial sensations, and the temporales, masseters, and pterygoids functioned normally. VII: He had normal facial expressions and no facial asymmetry. VIII: He was able to hear well bilaterally and had no nystagmus. IX: The palate moved symmetrically on phonation. X: He had no hoarseness of voice. XI: The sternocleidomastoids and trapezii functioned normally. XII: The tongue was in the midline without any fasciculations or atrophy. MOTOR SYSTEM: The tone was normal in all four extremities. Examination of muscle mass revealed generalized muscle wasting. Examination of power revealed grade 5/5 power in all muscle groups tested. SENSORY EXAMINATION: He had intact sensations to pinprick light touch and graphesthesia. He however complained of a subjective alteration to pinprick and light touch in a calf length stocking distribution. Position sense was normal in the fingers bilaterally but was significantly diminished in the toes bilaterally. REFLEXES: 0 at biceps, triceps, brachioradialis, knees, and ankles. The plantar responses were flexor bilaterally. STANCE: He had wide-based stance. GAIT: He had wide-based gait. Impression/Recommendations Diagnostic Impression 1. Mr. Christopher Camara is a 51-year-old, right-handed, gentleman, who has a long history of hypertension, diabetes mellitus, alcoholism, and a few seizures over the years associated with either alcohol intoxication or alcohol withdrawal. He was hospitalized on 05/31/16 for alcohol intoxication associated with generalized weakness, anxiety, and feeling unwell. 2. He feels significantly better today. He has been seizure free. He is also less tremulous. 3. On neurological examination, at this time, he does have mild problems with recent and remote memory, globally diminished reflexes, decreased sensations to pinprick and light touch in a calf length stocking distribution, decreased position sense in the toes bilaterally, globally absent reflexes, a wide-based stance, and a wide-based gait. 4. Laboratory data obtained thus far have revealed at that he is anemic with a hemoglobin of 13.4. His platelet count is down to 76,000. His glucose on admission was 387 and his blood alcohol level was 275 mg/dL. 5. The patient's history and neurological examination are most compatible with a history of alcohol use and alcohol related seizures. The patient has not had seizures that have been non-alcohol related. In addition, he has not been on any medicine for seizure prophylaxis and as long as he does not drink or withdraw from alcohol he does not have seizures. Recommendations 1. Continue present management. 2. Treatment of the patient's diabetes mellitus, hypertension, and foot infection. 3. The patient was told about ills of alcohol abuse and the dangers of alcohol related seizures. 4. Treatment of alcohol withdrawal as per Dr. Brunson. Romulo Archuleta M.D., M.S.P.H. ROMULO ARCHULETA Jun 02, 2016 12:30
[2016-06-02 16:00] VITALS: BP 152/95
--- NOTE | 2016-06-02 16:32 | Cardiac Electrophysiology PN ---
Assessment/Plan Assessment/Plan 1. Atrial fibrillation with rapid ventricular response, however EKG is very artifactual. Has remained in sinus rhythm. Repeat EKG showed SR. Echocardiogram EF 75% 2. Alcohol abuse on thiamine and folate. Watch for withdrawal. 3. Severe thrombocytopenia. The patient was evaluated by Dr. Hinton likely due to underlying hepatosplenomegaly and cirrhosis. 4. Seizure disorder. NEGAR RN Subjective Subjective Alert in NAD. Converted to SR. No chest pain or SOB. Objective Last 24 Hour Vital Signs Date Time Temp Pulse Resp B/P Pulse Ox O2 Delivery O2 Flow Rate FiO2 06/02/16 13:42 106 06/02/16 12:13 97.2 105 17 120/88 98 Room Air 06/02/16 08:00 97.3 95 18 139/89 95 Room Air 06/02/16 07:43 94 06/02/16 04:03 97.0 94 20 152/93 98 Room Air 06/02/16 04:00 94 06/02/16 00:05 97.2 95 20 157/96 98 Room Air 06/02/16 00:00 92 06/01/16 20:00 97.6 102 18 125/77 97 Room Air 06/01/16 19:04 98 Intake and Output 06/01/16 06/02/16 19:00 07:00 Output Total 1002 ml Balance -1002 ml Output Urine Total 1002 ml # Voids 2 2 # Bowel Movements 1 1 Laboratory Tests Test 06/02/16 07:10 06/02/16 07:50 Sodium Level 135 mEQ/L (135-145) Potassium Level 4.2 mEQ/L (3.4-4.9) Chloride Level 93 mEQ/L (98-107) L Carbon Dioxide Level 23 mEQ/L (20-30) Anion Gap 19 (5-15) H Blood Urea Nitrogen 9 mg/dL (7-23) Creatinine 0.9 mg/dL (0.7-1.2) Estimat Glomerular Filtration Rate > 60 mL/min (>60) Glucose Level 259 mg/dL (74-106) H Hemoglobin A1c 11.6 % (< 6.0) H Uric Acid 4.5 mg/dL (3.0-7.5) Calcium Level 9.6 mg/dL (8.6-10.2) Phosphorus Level 4.4 mg/dL (2.5-4.8) Magnesium Level 1.4 mg/dL (1.7-2.5) L Ferritin 359 ng/mL (10-230) H Total Bilirubin 1.3 mg/dL (0.0-1.2) H Direct Bilirubin 0.3 mg/dL (0.1-0.3) Gamma Glutamyl Transpeptidase 53 U/L (8-61) Aspartate Amino Transf (AST/SGOT) 36 U/L (5-40) Alanine Aminotransferase (ALT/SGPT) 20 U/L (3-41) Alkaline Phosphatase 120 U/L (40-129) Troponin I < 0.30 ng/mL (<=0.30) C-Reactive Protein, Quantitative < 0.3 mg/dL (< 0.5) Pro-B-Type Natriuretic Peptide 352 pg/mL (0-125) H Total Protein 7.6 g/dL (6.6-8.7) Albumin 3.6 g/dL (3.5-5.2) Globulin 4.0 g/dL Albumin/Globulin Ratio 0.9 (1.0-2.7) L Triglycerides Level 51 mg/dL (< 150) Cholesterol Level 136 mg/dL (< 200) LDL Cholesterol 81 mg/dL (60-99) HDL Cholesterol 45 mg/dL (> 60) Cholesterol/HDL Ratio 3.0 (3.3-4.4) L Vitamin B12 Level 673 pg/mL (211-946) Folate Pending Thyroid Stimulating Hormone (TSH) 2.000 uIU/mL (0.300-4.500) Free Thyroxine 1.75 ng/dL (0.86-1.85) White Blood Count 3.0 K/UL (4.8-10.8) L Red Blood Count 3.76 M/UL (4.70-6.10) L Hemoglobin 12.4 G/DL (14.2-18.0) L Hematocrit 35.5 % (42.0-52.0) L Mean Corpuscular Volume 94 FL (80-99) Mean Corpuscular Hemoglobin 32.9 PG (27.0-31.0) H Mean Corpuscular Hemoglobin Concent 34.9 G/DL (32.0-36.0) Red Cell Distribution Width 12.0 % (11.6-14.8) Platelet Count 67 K/UL (150-450) L Mean Platelet Volume 8.8 FL (6.5-10.1) Neutrophils (%) (Auto) % (45.0-75.0) Lymphocytes (%) (Auto) % (20.0-45.0) Monocytes (%) (Auto) % (1.0-10.0) Eosinophils (%) (Auto) % (0.0-3.0) Basophils (%) (Auto) % (0.0-2.0) Differential Total Cells Counted 100 Neutrophils % (Manual) 52 % (45-75) Lymphocytes % (Manual) 37 % (20-45) Monocytes % (Manual) 7 % (1-10) Eosinophils % (Manual) 4 % (0-3) H Basophils % (Manual) 0 % (0-2) Band Neutrophils 0 % (0-8) Platelet Estimate Decreased L Platelet Morphology Normal Red Blood Cell Morphology Normal Microbiology Date/Time Source Procedure Growth Status 05/31/16 16:40 Nasal Nares Influenza Types A,B Antigen (DHEERAJ) - Final Complete Objective VITAL SIGNS: Blood pressure is 132/87, pulse is 101, respirations 18, and temperature 98.2. HEAD AND NECK: Shows no JVD. LUNGS: Clear. CARDIOVASCULAR: Regular S1 and S2 with no gallop or murmur. ABDOMEN: Soft. EXTREMITIES: Nonpitting edema status post surgery in his left big toe. SIVA TOWNSEND Jun 02, 2016 16:32
[2016-06-02 20:00] VITALS: BP 136/84
--- NOTE | 2016-06-02 20:32 | Cardiology Report ---
APPROVED REPORT EKG Measurement Heart [id number] Sinus tachycardia Otherwise normal ECG
--- NOTE | 2016-06-02 20:52 | Cardiology Report ---
APPROVED REPORT EXAM: Two-dimensional and M-mode echocardiogram with Doppler and color Doppler. INDICATION Congestive Heart Failure M-Mode DIMENSIONS IVSd1.6 (0.7-1.1cm)Left Atrium (MM)3.1 (1.6-4.0cm) LVDd4.3 (3.5-5.6cm)Aortic Root3.4 (2.0-3.7cm) PWd1.3 (0.7-1.1cm)Aortic Cusp Exc.2.1 (1.5-2.0cm) LVDs2.4 (2.5-4.0cm) PWs1.4 cm Normal left ventricular chamber size, hyperdynamic systolic function and wall motion. Left ventricular ejection fraction estimated to be 70-75 %. Mild left ventricular hypertrophy. Anterior Echo-free space, may be due to pericardial fat or effusion. Mild left atrial enlargement. Right cardiac chamber sizes are within normal limits. Focal aortic valve sclerosis with adequate cusp excursion. Thickened mitral valve leaflets with normal excursion. Mitral annulus and aortic root calcification. Pulmonic valve not well visualized. Normal tricuspid valve structure. IVC at normal size with physiologic collapse. A color flow and spectral Doppler study was performed and revealed: Trace to mild mitral regurgitation. Mitral diastolic velocities suggest reduced left ventricular relaxation c/w mild LV diastolic dysfunction (Grade I). Trace tricuspid regurgitation. Tricuspid systolic velocities suggests peak right ventricular systolic pressure of 21 mmHg. Trace pulmonic regurgitation present.
[2016-06-03] VITALS: BP 131/83
[2016-06-03 04:00] VITALS: BP 141/96
[2016-06-03] MEDS: metFORMIN 500mg tab ORAL SCH ×3 (06:11→17:22)
[2016-06-03] MEDS: Glimepiride 1mg tab ORAL SCH (06:11)
[2016-06-03] MEDS: NovoLOG Insulin Flexpen SUBQ SCH ×4 (06:12→20:52)
[2016-06-03 08:00] VITALS: BP 124/75
[2016-06-03] MEDS: Thiamine 100mg tab ORAL SCH (08:18)
[2016-06-03 10:00] LABS: FOLIC ACID 18.8 ng/mL (3.1-17.5)
--- NOTE | 2016-06-03 10:09 | General Progress Note ---
Assessment/Plan Assessment/Plan ASSESSMENT: 1. Thrombocytopenia likely secondary to underlying hepatosplenomegaly and cirrhosis, plt 60-90k 2. Anemia secondary to chronic disease. In the past, it was in between 9-10 3. Leukopenia 2/2 splenomegaly 4. Alcoholism history. 5. Alcohol-induced liver cirrhosis. 6. Hypertension. 7. Seizure disorder. 8. Atrial fibrillation RECOMMENDATIONS: 1. Ferritin elevated, does not need iron 2. Peripheral smear reviewed 3. Hepatitis panel negative 4. Medications reviewed. 5. Alcohol cessation has been recommended 6. Followup cards, endo, renal recs 7. Discussed this with the patient. 8. Conside again outpatient alcohol detoxification treatment. 9. Transfuse if platelet count to > 20,000. 10. Discussed with staff. Thank you, Tyree Swift MD Subjective Constitutional: Reports: no symptoms HEENT: Reports: no symptoms Cardiovascular: Reports: no symptoms Respiratory: Reports: no symptoms Gastrointestinal/Abdominal: Reports: poor appetite Genitourinary: Reports: no symptoms Neurologic/Psychiatric: Reports: no symptoms Endocrine: Reports: no symptoms Hematologic/Lymphatic: Reports: anemia Allergies: Coded Allergies: No Known Allergies (Unverified , 11/18/15) Subjective no events overnight, no bleeding noted Objective Last 24 Hour Vital Signs Date Time Temp Pulse Resp B/P Pulse Ox O2 Delivery O2 Flow Rate FiO2 06/03/16 08:00 98.1 104 18 124/75 99 Room Air 101 06/03/16 04:00 97.9 102 18 141/96 96 Room Air 06/03/16 04:00 102 06/03/16 00:00 98 06/03/16 00:00 97.7 93 18 131/83 97 Room Air 06/02/16 20:00 101 06/02/16 20:00 60 18 136/84 98 Room Air 06/02/16 16:00 98 06/02/16 16:00 97.7 98 20 152/95 97 Room Air 06/02/16 13:42 106 06/02/16 12:13 97.2 105 17 120/88 98 Room Air Intake and Output 06/02/16 06/03/16 19:00 07:00 Intake Total 760 ml 120 ml Balance 760 ml 120 ml Intake Oral 460 ml 120 ml IV Total 300 ml # Voids 3 1 # Bowel Movements 2 Height (Feet): 5 Height (Inches): 4.00 Weight (Pounds): 140 General Appearance: no apparent distress EENT: TMs normal Neck: supple Cardiovascular: regular rhythm Respiratory/Chest: lungs clear Abdomen: soft Extremities: non-tender Edema: no edema noted Leg (L), no edema noted Leg (R) Edema: mild edema Neurologic: alert Skin: warm/dry Tyree Swift Jun 03, 2016 10:09
--- NOTE | 2016-06-03 10:22 | Cardiac Electrophysiology PN ---
Assessment/Plan Assessment/Plan 1. Atrial fibrillation with rapid ventricular response, EKG is very artifactual. Has remained in sinus rhythm. Repeat EKG showed Sinus tach today 107. Echocardiogram EF 75%. Add Lopressor 25 bid 2. Alcohol abuse on thiamine and folate. Watch for withdrawal. 3. Severe thrombocytopenia. The patient was evaluated by Dr. Hinton likely due to underlying hepatosplenomegaly and cirrhosis. 4. Seizure disorder. NEGAR RN Subjective Subjective Alert in NAD. No chest pain or SOB. Objective Last 24 Hour Vital Signs Date Time Temp Pulse Resp B/P Pulse Ox O2 Delivery O2 Flow Rate FiO2 06/03/16 08:00 98.1 104 18 124/75 99 Room Air 101 06/03/16 04:00 97.9 102 18 141/96 96 Room Air 06/03/16 04:00 102 06/03/16 00:00 98 06/03/16 00:00 97.7 93 18 131/83 97 Room Air 06/02/16 20:00 101 06/02/16 20:00 60 18 136/84 98 Room Air 06/02/16 16:00 98 06/02/16 16:00 97.7 98 20 152/95 97 Room Air 06/02/16 13:42 106 06/02/16 12:13 97.2 105 17 120/88 98 Room Air Intake and Output 06/02/16 06/03/16 19:00 07:00 Intake Total 760 ml 120 ml Balance 760 ml 120 ml Intake Oral 460 ml 120 ml IV Total 300 ml # Voids 3 1 # Bowel Movements 2 Microbiology Date/Time Source Procedure Growth Status 05/31/16 16:40 Nasal Nares Influenza Types A,B Antigen (DHEERAJ) - Final Complete Objective HEAD AND NECK: Shows no JVD. LUNGS: Clear. CARDIOVASCULAR: Regular S1 and S2 with no gallop or murmur. ABDOMEN: Soft. EXTREMITIES: Nonpitting edema. Dressing on left big toe SIVA TOWNSEND Jun 03, 2016 10:22
--- NOTE | 2016-06-03 11:33 | General Progress Note ---
Assessment/Plan Status: stable Assessment/Plan Proteinuria , likely related to DM or h/o HIV. At this time BUN and Cr are WNL. HGB A1c 11.6- likely Diabetic Nephropathy other conditions: 1. Thrombocytopenia likely secondary to underlying hepatosplenomegaly and cirrhosis. 2. h/o Human immunodeficiency virus in the past. currently HIV negative ! 3. Anemia secondary to chronic disease. 4. Alcoholism history. 5. Alcohol-induced liver cirrhosis. 6. Hypertension. 7. Seizure disorder. 8. DM, Hyperglycemia on presentation Plan: Mag supplement IV as needed Optimize blood sugar- monitor renal parameters and lytes- watch for alcohol withdraw per orders- ? DC planning?? Subjective ROS Limited/Unobtainable: No Constitutional: Reports: malaise Allergies: Coded Allergies: No Known Allergies (Unverified , 11/18/15) Objective Last 24 Hour Vital Signs Date Time Temp Pulse Resp B/P Pulse Ox O2 Delivery O2 Flow Rate FiO2 06/03/16 08:00 98.1 104 18 124/75 99 Room Air 101 06/03/16 04:00 97.9 102 18 141/96 96 Room Air 06/03/16 04:00 102 06/03/16 00:00 98 06/03/16 00:00 97.7 93 18 131/83 97 Room Air 06/02/16 20:00 101 06/02/16 20:00 60 18 136/84 98 Room Air 06/02/16 16:00 98 06/02/16 16:00 97.7 98 20 152/95 97 Room Air 06/02/16 13:42 106 06/02/16 12:13 97.2 105 17 120/88 98 Room Air Intake and Output 06/02/16 06/03/16 19:00 07:00 Intake Total 760 ml 120 ml Balance 760 ml 120 ml Intake Oral 460 ml 120 ml IV Total 300 ml # Voids 3 1 # Bowel Movements 2 Height (Feet): 5 Height (Inches): 4.00 Weight (Pounds): 140 General Appearance: no apparent distress EULALIA ENAMORADO Jun 03, 2016 11:33
[2016-06-03 12:00] VITALS: BP 127/83
[2016-06-03] MEDS: Acetaminophen 500mg (ES) tab ORAL PRN ×2 (13:59→23:46)
[2016-06-03] MEDS: Metoprolol 25mg tab ORAL SCH ×2 (14:55→20:50)
[2016-06-03 16:00] VITALS: BP 140/93
--- NOTE | 2016-06-03 16:23 | Neurology Progress Note ---
Interim History Interim History Interim History Mr. Caamra feels better. The tremulousness has resolved. The mind is clear. His strength is good. The feet are still numb. He denies any new neurologic symptoms. He is eager to go home. Review of Systems Neuro Review of Systems Benign. Objective Physical Exam Last Vital Signs Date Time Temp Pulse Resp B/P Pulse Ox O2 Delivery O2 Flow Rate FiO2 06/03/16 14:55 101 127/83 06/03/16 12:00 98.1 17 98 Room Air Neurologic Exam Objective PHYSICAL EXAMINATION: GENERAL: He is a well-developed, well-nourished, pleasant but anxious gentleman, lying in bed, in no acute distress. HEAD: Normocephalic and atraumatic. EENT: Examination benign. NECK: No neck rigidity was observed. NEUROLOGICAL EXAMINATION: MENTAL STATUS EXAMINATION: He was alert and awake. He was oriented to person, place, and time. He was able to recall 3/3 words immediately after 1 minute and after 3 minutes. He was able to remember presidents Obama through [place] with minimal hints. His mathematical skills were good. His visuospatial function was preserved. SPEECH: He had no dysarthria. LANGUAGE: He had no aphasia. Taking into account that [place] is his second language. CRANIAL NERVE EXAMINATION: II: The visual everett were intact to confrontation testing. III, IV & : The external ocular movements were full and the pupils 3 mm in diameter, equal, round, regular, and reactive to light. V: He had normal facial sensations, and the temporales, masseters, and pterygoids functioned normally. VII: He had normal facial expressions and no facial asymmetry. VIII: He was able to hear well bilaterally and had no nystagmus. IX: The palate moved symmetrically on phonation. X: He had no hoarseness of voice. XI: The sternocleidomastoids and trapezii functioned normally. XII: The tongue was in the midline without any fasciculations or atrophy. MOTOR SYSTEM: The tone was normal in all four extremities. Examination of muscle mass revealed generalized muscle wasting. Examination of power revealed grade 5/5 power in all muscle groups tested. SENSORY EXAMINATION: He had intact sensations to pinprick light touch and graphesthesia. He however complained of a subjective alteration to pinprick and light touch in a calf length stocking distribution. Position sense was normal in the fingers bilaterally but was significantly diminished in the toes bilaterally. REFLEXES: 0 at biceps, triceps, brachioradialis, knees, and ankles. The plantar responses were flexor bilaterally. STANCE: He had wide-based stance. GAIT: He had wide-based gait. Impression/Recommendations Diagnostic Impression 1. Mr. Christopher Camara is a 51-year-old, right-handed, gentleman, who has a long history of hypertension, diabetes mellitus, alcoholism, and a few seizures over the years associated with either alcohol intoxication or alcohol withdrawal. He was hospitalized on 05/31/16 for alcohol intoxication associated with generalized weakness, anxiety, and feeling unwell. 2. He feels much better. He says he is close to his normal self. He has been seizure free. The tremor has resolved. 3. On neurological examination, at this time, he does have mild problems with memory, globally diminished reflexes, decreased sensations to pinprick and light touch in a calf length stocking distribution, decreased position sense in the toes bilaterally, globally absent reflexes, a wide-based stance, and a wide- based gait. 4. Laboratory data on my initial evaluation revealed at that he was anemic with a hemoglobin of 13.4. His platelet count was down to 76,000. His glucose on admission was 387 and his blood alcohol level was 275 mg/dL. 5. The patient's history and neurological examination are most compatible with a history of alcohol use and alcohol related seizures. The patient has not had seizures that have been non-alcohol related. In addition, he has not been on any medicine for seizure prophylaxis and as long as he does not drink or withdraw from alcohol he does not have seizures. Recommendations 1. Continue present management. 2. Treatment of the patient's diabetes mellitus, hypertension, and foot infection. 3. The patient was told about ills of alcohol abuse and the dangers of alcohol related seizures. Romulo Nunez M.D., M.S.P.[facility]. ROMULO NUNEZ Jun 03, 2016 16:23
[2016-06-03] MEDS ORDERED: NS 275ml ONE (18:41)
[2016-06-03 20:00] VITALS: BP 138/94
[2016-06-03] MEDS ORDERED: Metoprolol 25mg tab ORAL SCH (21:00)
[2016-06-04] VITALS: BP 128/77
[2016-06-04 04:00] VITALS: BP 119/72
[2016-06-04] MEDS: NovoLOG Insulin Flexpen SUBQ SCH ×3 (06:04→16:28)
[2016-06-04] MEDS: metFORMIN 500mg tab ORAL SCH ×3 (06:05→16:27)
[2016-06-04] MEDS: Glimepiride 1mg tab ORAL SCH (06:05)
[2016-06-04] MEDS: Acetaminophen 500mg (ES) tab ORAL PRN ×2 (06:37→14:32)
[2016-06-04 07:52] VITALS: BP 136/88
--- NOTE | 2016-06-04 08:29 | Diagnostic Imaging Report ---
Indications: Abdominal pain and distention, cirrhosis Technique: Transabdominal real-time grayscale and duplex Doppler imaging of the upper abdomen and retroperitoneum was performed. Findings: Comparison: 11/23/2015. Liver 18 cm, diffusely coarsened and echogenic parenchymal collection is the, nodular surface contour. No obvious focal lesion.. Gallbladder unremarkable. No intraluminal stones or sludge. No mural thickening or adjacent fluid collections. Sonographic Burgos sign not reported.. Bile ducts normal caliber. Common bile duct 6 mm. Pancreas head and body unremarkable; tail obscured. Spleen unremarkable. Right kidney unremarkable. Left kidney contains multiple punctate echogenic non-shadowing cortical foci, otherwise unremarkable. Abdominal aorta, intrahepatic portion of inferior vena cava patent, normal caliber. Duplex Doppler imaging demonstrates antegrade flow in splenic, portal, hepatic veins. No ascites. IMPRESSION: Liver findings compatible with cirrhosis, also previously demonstrated. No current evidence of ascites. Pancreatic tail obscured Non-shadowing small stones versus other nonspecific specular reflectors left renal cortex Remainder of exam unremarkable
--- NOTE | 2016-06-04 09:08 | General Progress Note ---
Assessment/Plan Problem List: (1) ETOH abuse ICD Codes: F10.10 - Alcohol abuse, uncomplicated SNOMED: 70302708, 61181946 (2) Diabetes type 2, uncontrolled ICD Codes: E11.65 - Type 2 diabetes mellitus with hyperglycemia SNOMED: 767334533 Assessment/Plan glucose values improved but still on higher side I will Amaryl 2 mg daily to bid continue Metformin and Januvia as is continue sliding scale insulin with Novolog Subjective Allergies: Coded Allergies: No Known Allergies (Unverified , 11/18/15) Subjective events noted - feeling better Objective Last 24 Hour Vital Signs Date Time Temp Pulse Resp B/P Pulse Ox O2 Delivery O2 Flow Rate FiO2 06/04/16 07:52 97.9 87 20 136/88 98 Room Air 06/04/16 04:00 97.2 91 18 119/72 96 Room Air 06/04/16 04:00 94 06/04/16 00:00 97.5 85 18 128/77 95 Room Air 06/04/16 00:00 91 06/03/16 20:50 97 138/94 06/03/16 20:00 90 06/03/16 20:00 97.9 97 20 138/94 99 Room Air 06/03/16 16:00 90 06/03/16 16:00 97.7 96 20 140/93 98 Room Air 06/03/16 14:55 101 127/83 06/03/16 12:00 98.1 107 17 127/83 98 Room Air 107 06/03/16 12:00 101 Intake and Output 06/03/16 06/04/16 19:00 07:00 Intake Total 650 ml 240 ml Balance 650 ml 240 ml Intake Oral 650 ml 240 ml # Voids 2 2 Height (Feet): 5 Height (Inches): 4.00 Weight (Pounds): 140 General Appearance: no apparent distress Neck: normal alignment Cardiovascular: normal peripheral pulses Respiratory/Chest: lungs clear Abdomen: normal bowel sounds Objective Current Medications Medications (Trade) Dose Ordered Sig/Ariella Route PRN Reason Start Time Stop Time Status Last Admin Dose Admin Acetaminophen (Tylenol) 500 mg Q4H PRN ORAL Fever/Headache/Mild Pain 05/31/16 21:00 06/30/16 20:59 06/04/16 06:37 Dextrose (Dextrose 50%) STAT PRN IV Hypoglycemia 05/31/16 21:00 06/30/16 20:59 Diazepam (Valium) 10 mg EVERY 3 HOURS PRN ORAL alcohol withdrawal 05/31/16 21:45 06/07/16 21:44 Folic Acid (Folate) 1 mg DAILY ORAL 06/01/16 09:00 07/01/16 08:59 06/03/16 08:18 Glimepiride (Amaryl) 2 mg ACBREAKFAST ORAL 06/02/16 08:30 07/02/16 08:29 06/04/16 06:05 Insulin Aspart (NovoLOG) BEFORE MEALS AND HS SUBQ 05/31/16 22:30 06/30/16 22:29 06/04/16 06:04 Lorazepam (Ativan 2mg/ml 1ml) 1 mg Q4HR PRN IM For Seizures 05/31/16 21:00 06/07/16 20:59 Metformin HCl (Glucophage) 500 mg TIAC ORAL 06/01/16 11:30 07/01/16 11:29 06/04/16 06:05 Metoprolol Tartrate (Lopressor) 25 mg Q12HR ORAL 06/03/16 14:45 07/03/16 14:44 06/03/16 20:50 Sitagliptin Phosphate (Januvia) 100 mg ACBREAKFAST ORAL 06/01/16 11:30 07/01/16 11:29 06/04/16 06:05 Thiamine HCl (Vitamin B1) 100 mg DAILY ORAL 06/01/16 09:00 07/01/16 08:59 06/03/16 08:18 Item Value Date Time Bedside Blood Glucose 213 mg/dl H 06/04/16 0624 Bedside Blood Glucose 156 mg/dl H 06/03/16 2100 Bedside Blood Glucose 215 mg/dl H 06/03/16 1724 Bedside Blood Glucose 277 mg/dl H 06/03/16 1156 MESHA BRAMBILA Jun 04, 2016 09:08
[2016-06-04] MEDS: Thiamine 100mg tab ORAL SCH (09:11)
[2016-06-04] MEDS: Metoprolol 25mg tab ORAL SCH (09:11)
--- NOTE | 2016-06-04 10:00 | General Progress Note ---
Assessment/Plan Status: stable Assessment/Plan Proteinuria , likely related to DM or h/o HIV. At this time BUN and Cr are WNL. HGB A1c 11.6- likely Diabetic Nephropathy other conditions: 1. Thrombocytopenia likely secondary to underlying hepatosplenomegaly and cirrhosis. 2. h/o Human immunodeficiency virus in the past. currently HIV negative ! 3. Anemia secondary to chronic disease. 4. Alcoholism history. 5. Alcohol-induced liver cirrhosis. 6. Hypertension. 7. Seizure disorder. 8. DM, Hyperglycemia on presentation Plan: BS being adjusted- no labs today- Mag supplement IV as needed Optimize blood sugar- monitor renal parameters and lytes- watch for alcohol withdraw per orders- ? DC planning?? Subjective ROS Limited/Unobtainable: No Allergies: Coded Allergies: No Known Allergies (Unverified , 11/18/15) Objective Last 24 Hour Vital Signs Date Time Temp Pulse Resp B/P Pulse Ox O2 Delivery O2 Flow Rate FiO2 06/04/16 09:11 87 136/88 06/04/16 07:52 97.9 87 20 136/88 98 Room Air 06/04/16 04:00 97.2 91 18 119/72 96 Room Air 06/04/16 04:00 94 06/04/16 00:00 97.5 85 18 128/77 95 Room Air 06/04/16 00:00 91 06/03/16 20:50 97 138/94 06/03/16 20:00 90 06/03/16 20:00 97.9 97 20 138/94 99 Room Air 06/03/16 16:00 90 06/03/16 16:00 97.7 96 20 140/93 98 Room Air 06/03/16 14:55 101 127/83 06/03/16 12:00 98.1 107 17 127/83 98 Room Air 107 06/03/16 12:00 101 Intake and Output 06/03/16 06/04/16 19:00 07:00 Intake Total 650 ml 240 ml Balance 650 ml 240 ml Intake Oral 650 ml 240 ml # Voids 2 2 Height (Feet): 5 Height (Inches): 4.00 Weight (Pounds): 140 General Appearance: no apparent distress Objective other PE not changed EULALIA ENAMORADO Jun 04, 2016 10:00
[2016-06-04 11:35] VITALS: BP 118/79
--- NOTE | 2016-06-04 12:32 | Cardiac Electrophysiology PN ---
Assessment/Plan Assessment/Plan 1. Atrial fibrillation with rapid ventricular response, EKG is very artifactual. Has remained in sinus rhythm. Repeat EKG showed Sinus tach . Echocardiogram EF 75%.Continue Lopressor 25 bid 2. Alcohol abuse on thiamine and folate. Watch for withdrawal. 3. Severe thrombocytopenia. The patient was evaluated by Dr. Hinton likely due to underlying hepatosplenomegaly and cirrhosis. 4. Seizure disorder. NEGAR RN DC tele. OK to DC from cardiac stand point. Subjective Subjective Alert in NAD. No chest pain or SOB.In SR. Objective Last 24 Hour Vital Signs Date Time Temp Pulse Resp B/P Pulse Ox O2 Delivery O2 Flow Rate FiO2 06/04/16 11:35 97.5 92 20 118/79 99 Room Air 06/04/16 09:11 87 136/88 06/04/16 08:00 91 06/04/16 07:52 97.9 87 20 136/88 98 Room Air 06/04/16 04:00 97.2 91 18 119/72 96 Room Air 06/04/16 04:00 94 06/04/16 00:00 97.5 85 18 128/77 95 Room Air 06/04/16 00:00 91 06/03/16 20:50 97 138/94 06/03/16 20:00 90 06/03/16 20:00 97.9 97 20 138/94 99 Room Air 06/03/16 16:00 90 06/03/16 16:00 97.7 96 20 140/93 98 Room Air 06/03/16 14:55 101 127/83 Intake and Output 06/03/16 06/04/16 19:00 07:00 Intake Total 650 ml 240 ml Balance 650 ml 240 ml Intake Oral 650 ml 240 ml # Voids 2 2 Current Medications Medications (Trade) Dose Ordered Sig/Ariella Route PRN Reason Start Time Stop Time Status Last Admin Dose Admin Acetaminophen (Tylenol) 500 mg Q4H PRN ORAL Fever/Headache/Mild Pain 05/31/16 21:00 06/30/16 20:59 06/04/16 06:37 Dextrose (Dextrose 50%) STAT PRN IV Hypoglycemia 05/31/16 21:00 06/30/16 20:59 Diazepam (Valium) 10 mg EVERY 3 HOURS PRN ORAL alcohol withdrawal 05/31/16 21:45 06/07/16 21:44 Folic Acid (Folate) 1 mg DAILY ORAL 06/01/16 09:00 07/01/16 08:59 06/04/16 09:10 Glimepiride (Amaryl) 2 mg BID ORAL 06/04/16 18:00 07/04/16 17:59 Insulin Aspart (NovoLOG) BEFORE MEALS AND HS SUBQ 05/31/16 22:30 06/30/16 22:29 06/04/16 11:21 Lorazepam (Ativan 2mg/ml 1ml) 1 mg Q4HR PRN IM For Seizures 05/31/16 21:00 06/07/16 20:59 Metformin HCl (Glucophage) 500 mg TIAC ORAL 06/01/16 11:30 07/01/16 11:29 06/04/16 11:19 Metoprolol Tartrate (Lopressor) 25 mg Q12HR ORAL 06/03/16 14:45 07/03/16 14:44 06/04/16 09:11 Sitagliptin Phosphate (Januvia) 100 mg ACBREAKFAST ORAL 06/01/16 11:30 07/01/16 11:29 06/04/16 06:05 Thiamine HCl (Vitamin B1) 100 mg DAILY ORAL 06/01/16 09:00 07/01/16 08:59 06/04/16 09:11 Objective HEAD AND NECK: Shows no JVD. LUNGS: Clear. CARDIOVASCULAR: Regular S1 and S2 with no gallop or murmur. ABDOMEN: Soft. EXTREMITIES: Nonpitting edema. Dressing on left big toe SIVA TOWNSEND Jun 04, 2016 12:32
--- NOTE | 2016-06-04 13:25 | General Progress Note ---
Assessment/Plan Problem List: (1) Anemia ICD Codes: D64.9 - Anemia, unspecified SNOMED: 694449140 (2) ETOH abuse ICD Codes: F10.10 - Alcohol abuse, uncomplicated SNOMED: 15025677, 91471648 (3) Diabetes type 2, uncontrolled ICD Codes: E11.65 - Type 2 diabetes mellitus with hyperglycemia SNOMED: 056339213 Assessment/Plan dc if ok dr campos and dr garcia has elev bg and abnormal cbc Subjective ROS Limited/Unobtainable: Yes Constitutional: Reports: no symptoms Allergies: Coded Allergies: No Known Allergies (Unverified , 11/18/15) Objective Last 24 Hour Vital Signs Date Time Temp Pulse Resp B/P Pulse Ox O2 Delivery O2 Flow Rate FiO2 06/04/16 11:35 97.5 92 20 118/79 99 Room Air 06/04/16 09:11 87 136/88 06/04/16 08:00 91 06/04/16 07:52 97.9 87 20 136/88 98 Room Air 06/04/16 04:00 97.2 91 18 119/72 96 Room Air 06/04/16 04:00 94 06/04/16 00:00 97.5 85 18 128/77 95 Room Air 06/04/16 00:00 91 06/03/16 20:50 97 138/94 06/03/16 20:00 90 06/03/16 20:00 97.9 97 20 138/94 99 Room Air 06/03/16 16:00 90 06/03/16 16:00 97.7 96 20 140/93 98 Room Air 06/03/16 14:55 101 127/83 Intake and Output 06/03/16 06/04/16 19:00 07:00 Intake Total 650 ml 240 ml Balance 650 ml 240 ml Intake Oral 650 ml 240 ml # Voids 2 2 Height (Feet): 5 Height (Inches): 4.00 Weight (Pounds): 140 Neck: supple Cardiovascular: normal rate Respiratory/Chest: lungs clear Giuseppe Anderson MD Jun 04, 2016 13:25
--- NOTE | 2016-06-04 14:24 | General Progress Note ---
Assessment/Plan Assessment/Plan ASSESSMENT: 1. Thrombocytopenia likely secondary to underlying hepatosplenomegaly and cirrhosis, plt 50-90k 2. Anemia secondary to chronic disease. In the past, it was in between 9-10 3. Leukopenia 2/2 splenomegaly 4. Alcoholism history. 5. Alcohol-induced liver cirrhosis. 6. Hypertension. 7. Seizure disorder. 8. Atrial fibrillation RECOMMENDATIONS: 1. Ferritin elevated, does not need iron 2. Peripheral smear has been reviewed 3. Hepatitis panel negative 4. Medications reviewed. 5. Alcohol cessation recommended 6. Followup cards, endo, renal recs 7. Discussed this with the patient. 8. Stable for discharge from hematology service 9. Transfuse if platelet count to > 20,000. 10. Discussed with staff. Thank you, Kaity Swift MD Subjective Constitutional: Reports: no symptoms HEENT: Reports: no symptoms Cardiovascular: Reports: no symptoms Respiratory: Reports: no symptoms Gastrointestinal/Abdominal: Reports: poor appetite Neurologic/Psychiatric: Reports: no symptoms Endocrine: Reports: no symptoms Hematologic/Lymphatic: Reports: anemia Allergies: Coded Allergies: No Known Allergies (Unverified , 11/18/15) Subjective no transfusions noted, no fevers or chills Objective Last 24 Hour Vital Signs Date Time Temp Pulse Resp B/P Pulse Ox O2 Delivery O2 Flow Rate FiO2 06/04/16 11:35 97.5 92 20 118/79 99 Room Air 06/04/16 09:11 87 136/88 06/04/16 08:00 91 06/04/16 07:52 97.9 87 20 136/88 98 Room Air 06/04/16 04:00 97.2 91 18 119/72 96 Room Air 06/04/16 04:00 94 06/04/16 00:00 97.5 85 18 128/77 95 Room Air 06/04/16 00:00 91 06/03/16 20:50 97 138/94 06/03/16 20:00 90 06/03/16 20:00 97.9 97 20 138/94 99 Room Air 06/03/16 16:00 90 06/03/16 16:00 97.7 96 20 140/93 98 Room Air 06/03/16 14:55 101 127/83 Intake and Output 06/03/16 06/04/16 19:00 07:00 Intake Total 650 ml 240 ml Balance 650 ml 240 ml Intake Oral 650 ml 240 ml # Voids 2 2 Height (Feet): 5 Height (Inches): 4.00 Weight (Pounds): 140 General Appearance: no apparent distress EENT: normal ENT inspection Neck: supple Cardiovascular: regular rhythm Respiratory/Chest: chest wall non-tender Abdomen: non tender Extremities: non-tender Edema: no edema noted Leg (L), no edema noted Leg (R) Edema: mild edema Neurologic: alert Skin: warm/dry KAITY SWIFT Jun 04, 2016 14:24
--- NOTE | 2016-06-04 14:58 | Neurology Progress Note ---
Interim History Interim History Interim History Mr. Camara feels very well. He feels he is back to his normal self. The tremulousness has resolved. He continues to be seizure-free. The mind is clear. His strength is good. The feet are still numb. He denies any new neurologic symptoms. He is eager to go home. Review of Systems Neuro Review of Systems Benign. Objective Physical Exam Last Vital Signs Date Time Temp Pulse Resp B/P Pulse Ox O2 Delivery O2 Flow Rate FiO2 06/04/16 11:35 97.5 92 20 118/79 99 Room Air Neurologic Exam Objective PHYSICAL EXAMINATION: GENERAL: He is a well-developed, well-nourished, pleasant gentleman, lying in bed, in no acute distress. HEAD: Normocephalic and atraumatic. EENT: Examination benign. NECK: No neck rigidity was observed. NEUROLOGICAL EXAMINATION: MENTAL STATUS EXAMINATION: He was alert and awake. He was oriented to person, place, and time. He was able to recall 3/3 words immediately after 1 minute and after 3 minutes. He was able to remember presidents Obama through [place] with minimal hints. His mathematical skills were good. His visuospatial function was preserved. SPEECH: He had no dysarthria. LANGUAGE: He had no aphasia. Taking into account that Croatian is his second language. CRANIAL NERVE EXAMINATION: II: The visual everett were intact to confrontation testing. III, IV & : The external ocular movements were full and the pupils 3 mm in diameter, equal, round, regular, and reactive to light. V: He had normal facial sensations, and the temporales, masseters, and pterygoids functioned normally. VII: He had normal facial expressions and no facial asymmetry. VIII: He was able to hear well bilaterally and had no nystagmus. IX: The palate moved symmetrically on phonation. X: He had no hoarseness of voice. XI: The sternocleidomastoids and trapezii functioned normally. XII: The tongue was in the midline without any fasciculations or atrophy. MOTOR SYSTEM: The tone was normal in all four extremities. Examination of muscle mass revealed generalized muscle wasting. Examination of power revealed grade 5/5 power in all muscle groups tested. SENSORY EXAMINATION: He had intact sensations to pinprick light touch and graphesthesia. He however complained of a subjective alteration to pinprick and light touch in a calf length stocking distribution. Position sense was normal in the fingers bilaterally but was significantly diminished in the toes bilaterally. REFLEXES: 0 at biceps, triceps, brachioradialis, knees, and ankles. The plantar responses were flexor bilaterally. STANCE: He had wide-based stance. GAIT: He had wide-based gait. Impression/Recommendations Diagnostic Impression 1. Mr. Christopher Camara is a 51-year-old, right-handed, gentleman, who has a long history of hypertension, diabetes mellitus, alcoholism, and a few seizures over the years associated with either alcohol intoxication or alcohol withdrawal. He was hospitalized on 05/31/16 for alcohol intoxication associated with generalized weakness, anxiety, and feeling unwell. 2. He feels much better. He says he is close to his normal self. He has been seizure free. The tremor has resolved. 3. On neurological examination, at this time, he does have mild problems with memory, globally diminished reflexes, decreased sensations to pinprick and light touch in a calf length stocking distribution, decreased position sense in the toes bilaterally, globally absent reflexes, a wide-based stance, and a wide- based gait. 4. Laboratory data on my initial evaluation revealed at that he was anemic with a hemoglobin of 13.4. His platelet count was down to 76,000. His glucose on admission was 387 and his blood alcohol level was 275 mg/dL. 5. The patient's history and neurological examination are most compatible with a history of alcohol use and alcohol related seizures. The patient has not had seizures that have been non-alcohol related. In addition, he has not been on any medicine for seizure prophylaxis and as long as he does not drink or withdraw from alcohol he does not have seizures. 6. He is now status post alcohol intoxication and alcohol withdrawal. Recommendations 1. Continue present management. 2. Treatment of the patient's diabetes mellitus, hypertension, and foot infection. 3. The patient was again told about ills of alcohol abuse and the dangers of alcohol related seizures. Romulo Nunez M.D., M.S.P.Nu. ROMULO NUNEZ Jun 04, 2016 14:58
[2016-06-04 16:00] VITALS: BP 122/82
[2016-06-04] MEDS ORDERED: Glimepiride 1mg tab ORAL SCH (18:00)
--- NOTE | 2016-06-05 19:49 | Cardiology Report ---
APPROVED REPORT EKG Measurement Heart [id number] Sinus tachycardia Otherwise normal ECG
--- NOTE | 2016-06-06 09:28 | History and Physical Report ---
HISTORY OF PRESENT ILLNESS: The patient is a poor historian, admitted for uncontrolled diabetes mellitus. The patient has heavy alcohol use history. The patient is very vague and a poor historian at this point, but he is very noncompliant with diet and his medications, admitted for elevated blood sugar and the patient initially was tachycardic and the patient with early onset history of cirrhosis and low platelets from history of alcohol withdrawal seizures. PAST MEDICAL HISTORY: History of alcohol withdrawal, history of osteomyelitis, history of anemia, history of cervical diskitis, alcohol abuse, NIDDM, and history of alcoholic hepatitis. PAST SURGICAL HISTORY: The patient has foot surgery. The patient has also poor vision. The patient also has a left foot surgery. MEDICATIONS: Hypertensive medications, Norvasc, Januvia, thiamine, tramadol, but the patient is not compliant with his medications. ALLERGIES: No known allergies. SOCIAL HISTORY: The patient has alcohol abuse. Denies history of drug abuse. Does have history of smoking. FAMILY HISTORY: Hepatitis C and diabetes. REVIEW OF SYSTEMS: HEENT: Denies headaches. Respiratory: Denies shortness of breath. Denies cough. Cardiovascular: Denies chest pain. No orthopnea. GI: Denies nausea, vomiting, or diarrhea. Extremities: Denies pain. Central Nervous System: Weak and has poor vision. PHYSICAL EXAMINATION: VITAL SIGNS: Temperature 98.2 degrees, pulse is 101, and blood pressure 130/87. HEENT: PERRLA. NECK: Supple. No lymphadenopathy. CHEST: Clear to auscultation. GASTROINTESTINAL: Soft, nontender and nondistended. No organomegaly. EXTREMITIES: No edema. Moves all four extremities. NEUROLOGIC: Reflexes are equal on both sides. LABORATORY DATA: WBC of 5.2, hemoglobin 13.4, and platelets of 76,000. Sodium 142, potassium 4.7, BUN of 9, creatinine of 0.9, and glucose of 387. ASSESSMENT: 1. Elevated blood sugar. 2. History of alcohol abuse. 3. Tachycardia initially. 4. History of alcohol withdrawal seizure. PLAN: I have asked Dr. Graff, Dr. Crook, Dr. Swift, Dr. Brunson, Dr. Arreguin, and Dr. Nunez and to see the patient for the above-mentioned diagnoses and treatment. Giuseppe Anderson M.D. DR: Felice JOB#: [id number] CC:
--- NOTE | 2016-06-06 11:10 | Discharge Summary ---
Discharge Summary Hospital Course Date of Admission May 31, 2016 at 17:43 Date of Discharge Jun 04, 2016 at 17:50 Admitting Diagnosis uncontrolled DM HPI Christopher Camara is a 51 year old male who was admitted on May 31, 2016 at 17:43 for Uncontrolled Diabetes Mellitus Hospital Course dc summary dictated #[id number] Discharge Medications Continued Medications: Acetaminophen* (Acetaminophen*) 325 Mg Tablet 650 MG ORAL QID PRN for pain for 30 Days, TAB Amlodipine Besylate* (Amlodipine Besylate*) 10 Mg Tablet 10 MG ORAL DAILY, TAB Folic Acid* (Folic Acid*) 1 Mg Tablet 1 MG ORAL DAILY, TAB Glyburide (Glyburide) 5 Mg Tablet 2.5 MG ORAL BIAC, #60 TAB Sitagliptin (Januvia) 50 Mg Tablet 50 MG ORAL ACBREAKFAST, #30 TAB Thiamine Hcl* (Vitamin B-1*) 100 Mg Tablet 100 MG ORAL DAILY, #30 TAB 0 Refills Discharge Discharge Disposition Patient was discharged to Home (01) Discharge Diagnoses: Kendell (Keke)Keely NP Jun 06, 2016 11:10
--- NOTE | 2016-06-07 03:58 | Discharge Summary 2 SIG ---
DATE OF ADMISSION: 05/31/2016 DATE OF DISCHARGE: 06/04/2016 REASON FOR ADMISSION: 51-year-old male came with evidence of alcohol intoxication. Blood sugar upon admission was elevated at 387. The patient has underlying history of hypertension, diabetes out of control as well as seizure disorder. The patient was admitted for alcohol detoxification and blood sugar management to the hospital. ADMITTING DIAGNOSES: 1. Diabetes, out of control. 2. Alcohol dependence and alcohol withdrawal. 3. Hypertension. 4. Seizure disorder. 5. Thrombocytopenia. HOSPITAL COURSE: The patient was started on IV banana bag, thiamine, and folic acid provided. Magnesium replaced. Neurology consult requested as well as the endocrinology consult. Hemoglobin A1c is 11.6, clearly not at goal. The patient's blood sugar was managed with oral metformin and Januvia as well as a sliding scale of insulin as needed. Blood sugar was trending down, patient may need further adjustment of anti-glycemic medication regimen on outpatient basis. Counseled on diabetic diet. The patient was counseled on abstinence from alcohol. Abdominal x-ray revealed evidence of cirrhosis, but no ascites. Chest x-ray revealed no acute cardiopulmonary disease. Serum alcohol level was 275 on admission. Urine drug screen was negative. In addition to intravenous banana bag, the patient was started on Valium as needed for withdrawal. Neurology and Psychiatry have seen the patient and recommended outpatient alcohol detoxification program upon discharge. Seizure precaution maintained, no seizure activity while in the hospital, seizure likely alcohol induced as per neurologist. The patient is not on any antiseizure medication. Last seizure was numerous months ago. Thiamine upon discharge was prescribed. Manager Drug Safety seen the patient. Apparently, there was evidence of atrial fibrillation on the telemetry, however, per biomedical specialist, atrial fibrillation probably artifact. The patient remained in sinus rhythm. Blood pressure was managed with calcium channel petra, stable. Renal parameters were closely monitored. Digital Product Specialist followed the patient for proteinuria. Cirrhosis likely alcohol induced. Again recommended on alcohol cessation. Patient was discharged home after stabilization. FOLLOWUP: Follow up with the primary medical doctor and outpatient alcohol program. DISCHARGE MEDICATIONS: See medication reconciliation list. FINAL DIAGNOSES: 1. Alcohol dependence with alcohol withdrawal. 2. Diabetes mellitus, out of control. 3. Hypertension. 4. Seizure disorder. 5. Thrombocytopenia secondary to hepatosplenomegaly and cirrhosis. 6. Alcohol-induced cirrhosis. 7. History of human immunodeficiency virus status. Giuseppe Anderson M.D. I have been assigned to dictate discharge summary on this account and I was not involved in the patient's management. Keely Rdz N.P. (Vanchtein) DR: Luda JOB#: [id number] CC: PAUL
--- NOTE | 2016-06-11 17:30 | Diagnostic Imaging Report ---
APPROVED REPORT CPT Code: 77870 Present Symptoms Lower Extremity Pain: Bilateral Comments: Post Op right foot BILATERAL: Imaging reveals a patent deep venous system bilaterally. There is no evidence of thrombus within the femoral, popliteal or tibial segments. The greater saphenous veins are also within normal limits. Doppler indicates normal spontaneous flow within these segments. Incidental findings: An enlarged lymph node noted in the right superficial femoral vein area measures (2.0 cm x 0.4cm).
== END 2016-06-04 17:50 | disposition home or self-care (01) | DRG 775 ==
LOC: EDBD 16:07 → EMR 16:36 → 2E 17:43 → EDBEDREQ 18:10 → EDBEDREQTM 19:33 → EDBEDREQ 19:33 → EDBEDREQSVC 19:33
DX: F10.239 Alcohol dependence with withdrawal, unspecified (principal); D69.6 Thrombocytopenia, unspecified; E11.21 Type 2 diabetes mellitus with diabetic nephropathy; E11.65 Type 2 diabetes mellitus with hyperglycemia; E11.22 Type 2 diabetes mellitus with diabetic chronic kidney disease; I48.91 Unspecified atrial fibrillation; G40.89 Other seizures; I12.9 Hypertensive chronic kidney disease with stage 1 through stage 4 chronic kidney disease, or unspecified chronic kidney disease; K70.30 Alcoholic cirrhosis of liver without ascites; Z91.11 Patient's noncompliance with dietary regimen; Z91.14 Patient's other noncompliance with medication regimen; Z87.891 Personal history of nicotine dependence; R00.0 Tachycardia, unspecified; D63.8 Anemia in other chronic diseases classified elsewhere; Z79.4 Long term (current) use of insulin; N18.9 Chronic kidney disease, unspecified
CPT/HCPCS: 36415; 71010; 76700; 80053; 80061; 80300; 80329; 81003; 82248; 82607; 82728; 82746; 82962; 82977; 83036; 83540; 83550; 83735; 83880; 84100; 84439; 84443; 84484; 84550; 85007; 85025; 86140; 86703; 86710; 93005; 93306; 93970; J1815; Q2036